=== PATIENT | male | born 1950 | race Caucasian/White ===

== ENCOUNTER 2023-05-02 15:17 | Outpatient (REF) | payer BC, MEDICARE, SELFPAY ==
[2023-05-02 18:19] LABS: Alanine Aminotransferase 20 U/L (0-40); Albumin Level 4.1 g/dL (3.5-5.0); Alkaline Phosphatase 74 U/L (39-117); Anion Gap 13 (12-20); Aspartate Amino Transferase 27 U/L (5-37); Blood Urea Nitrogen 16 mg/dL (9-16); Calcium 9.8 mg/dL (8.4-10.2); Carbon Dioxide 28 mmol/L (22-29); Chloride 107 mmol/L (96-108); Estimated Glomerular Filt Rate > 60; Ferritin 35 ng/mL (20-250); Glucose Random 81 mg/dL (60-115); Iron 56 mcg/dL (45-160); Magnesium 1.9 mg/dL (1.6-2.6); Percent Iron Saturation 19 % (15-50); Potassium 3.9 mmol/L (3.3-5.1); Sodium 144 mmol/L (135-145); Thyroid Stimulating Hormone 2.67 uIU/mL (0.32-4.0); Total Iron Binding Capacity 288 mcg/dL (228-428); Total Protein 6.5 g/dL (6.5-8.0); Unsaturated Iron Binding 232 ug/dL
[2023-05-02 18:34] LABS: Bilirubin Total 0.7 mg/dL (0.0-1.0)
== END 2023-05-02 15:18 | disposition home or self-care (01) ==
LOC: HO.MANLDS 15:17
PROVIDERS: Visit Provider Internal Medicine
DX: I47.20 Ventricular tachycardia, unspecified (principal)
CPT/HCPCS: 36415; 80053; 82728; 83540; 83735; 84443

== ENCOUNTER 2025-07-27 11:26 | Outpatient (REF) | payer MEDICARE, SELFPAY ==
[2025-07-27 13:03] LABS: MANUAL DIFF FLAG NO
[2025-07-27 13:19] LABS: Hematocrit 49.4 % (42.0-52.0); Hemoglobin 16.8 g/dl (14.0-18.0); Imm Gran Abs Auto 0.06 X10*3/uL (0.00-0.03); Imm Gran Pct Auto 0.6 % (0.0-0.4); Lymphocytes Absolute Auto 1.5 X10*3/uL (1.2-4.9); Mean Corpuscular HGB Conc 34.0 g/dl (31.0-36.0); Mean Corpuscular Hemoglobin 31.5 pg (27.0-33.0); Mean Corpuscular Volume 92.7 fL (80.0-98.0); NRBC Abs Auto 0.000 X10*3/uL (0.0-0.012); NRBC Pct Auto 0.0 /100WBC (0.0-0.2); Platelet Count 191 X10*3/uL (160-400); Red Blood Count 5.33 X10*6/uL (4.60-5.80); White Blood Count 10.7 X10*3/uL (4.8-10.8)
[2025-07-27 14:44] LABS: Prostate Specific Antigen 0.62 ng/mL (<0.05-4.0)
[2025-07-27 14:54] LABS: Alanine Aminotransferase 27 U/L (0-40); Albumin Level 4.4 g/dL (3.5-5.0); Anion Gap 15 (12-20); Aspartate Amino Transferase 28 U/L (5-37); Blood Urea Nitrogen 22 mg/dL (9-16); Calcium 9.3 mg/dL (8.4-10.2); Carbon Dioxide 29 mmol/L (22-29); Chloride 103 mmol/L (96-108); Estimated Glomerular Filt Rate 51; Potassium 3.3 mmol/L (3.3-5.1); Sodium 144 mmol/L (135-145); Total Protein 6.6 g/dL (6.5-8.0)
--- OUTSIDE RECORDS SUMMARY | 2025-07-27 15:06 | XMS_ITS | Encounter Summary ---
Author Organization [facility] Address [address] [place] [address] Phone Care Team Providers Care Bottle Label Inspector Name Role Phone Reji Stout DO Primary Care Provider Nigel Gunderson DO Unavailable [phone] Delmy Garcia FREIGHT REPRESENTATIVE Unavailable Encounter Details Date Type Department Care Team (Late st Contact Info) Description 10/03/2021 Procedure Pass Non-Invasive Cardiology [address] [place] [address] Social History Tobacco Use Types Packs/Day Years Used Date Smoking Tobacco: Never Smokeless Tobacco: Never Alcohol Use Standard Drinks/Week Comments Yes 0 (1 standard drink = 0.6 oz pur e alcohol) 3 drinks a day Sex and Gender Information Value Date Recorded Sex Assigned at Male 09/23/2018 11:07 AM EST Legal Sex Male 9:59 PM EDT Gender Identity Male 09/23/2018 11:07 AM EST Sexual Orientation Straight 09/23/2018 11 :07 AM EST documented as of this encounter Functional Status * Calculated C-SSRS Risk Score (Lifetime/Recent) Answer Date of Assessment Author No Risk Indicated 10/03/2021 12:35 PM Ivonne Enamorado RN * [place] Suicide Severity Rating Scale (Screener/Recent Self-Report) Question Answer Date of Assessment Author 1. Wish to be (Past 1 Month) No 022 12:35 PM Ivonne Enamorado RN 2. Non-Specific Active Suici sugar Thoughts (Past 1 Month) No 10/03/2021 12:35 PM Ivonne Enamorado RN 6. Suicidal Behavior (Lifetime) No 12:35 PM Ivonne Enamorado RN documented as of this encounter Plan of Treatment Upcoming Encounters Date Type Department Care Team (Late st Contact Info) Description 08/10/2025 9:45 AM EST Office Visit [facility] 22 [facility] 3rd Floor, [address] [place] [address] Ezra Robledo DO [address] [place] [address] [place] [address] [email or web address] documented as of this encounter Visit Diagnoses Not on filedocumented in this encounter Additional Health Concerns Infection Onset Date Last Indicated Resolved Time CoV-Exposed 11/16/2021 11/21/2021 11/27/2021 1:22 AM EDT CoV-Risk Comment:2 neg covid 06/25/2022 06/27/2022 06/27/2022 10:27 AM EDT Rhino/Entero 06/26/2022 06/26/2022 07/03/2022 1:22 AM EDT CoV-Risk 08/20/2022 08/20/2022 08/31/2022 1:22 AM EST CoV-Risk Comment:Neg covid 02/12/2023 02/12/2023 02/13/2023 6:46 AM E DT documented as of this encounter Care Teams Bottle Label Inspector Relationship Specialty Start Date End Date Reji Stout DO [email or web address] PCP - General Internal Medicine 01/03/19 Nigel Gunderson DO [address] [place] [address] [email or web address] Primary Oncologist Hematology and Oncology 05/05/21 Delmy Garcia NP [address] [place] [address] [email or web address] Nurse Practitioner Medical Oncology 05/05/21 documented as of this encounter Additional Source Comments The information contained in this document represents components of the legal health record. It is not the complete legal health record.[facility]
--- OUTSIDE RECORDS SUMMARY | 2025-07-27 15:06 | XMS_ITS | Encounter Summary ---
Author Organization [facility] Address [address] [place] [address] Phone Care Team Providers Care Home Health Cna Name Role Phone Reji Stout DO Primary Care Provider [phone] Reji Stout DO Primary Care Provider [phone] Nigel Gunderson DO Unavailable [phone] Delmy Garcia RECAPPER Unavailable [phone] Encounter Details Date Type Department Care Team (Late st Contact Info) Description 12/23/2018 Procedure Pass [facility], [facility] [address] [place] [address] Social History Tobacco Use Types Packs/Day Years [...] AM EST documented as of this encounter Plan of Treatment Upcoming Encounters Date Type Department Care Team (Late st Contact Info) Description 08/10/2025 9:45 AM EST Office Visit [facility] 22 [facility] 3rd Floor, [address] [place] [address] Ezra Robledo DO 22 [facility] [address] [place] [address] [email or web address] documented as of this encounter Visit Diagnoses Not on filedocumented in this encounter Additional Health Concerns Infection Onset Date Last Indicated Resolved Time CoV-Risk 07/23/2020 07/26/2020 08/06/2020 1:24 AM EST CoV-Exposed 11/16/2021 11/21/2021 11/27/2021 1:22 AM EDT CoV-Risk Comment:2 neg covid 06/25/2022 06/27/2022 06/27/2022 10:27 AM EDT Rhino/Entero 06/26/2022 06/26/2022 07/03/2022 1:22 AM EDT CoV-Risk 08/20/2022 08/20/2022 08/31/2022 1:22 AM EST CoV-Risk Comment:Neg covid 02/12/2023 02/12/2023 02/13/2023 6:46 AM E DT documented as of this encounter Care Teams Home Health Cna Relationship Specialty Start Date End Date Reji Stout DO PCP - General 06/21/17 01/02/19 Reji Stout DO PCP - General Internal Medicine 01/03/19 Nigel Gunderson DO 30 [place] [address] [email or web address] Primary Oncologist Hematology and Oncology 05/05/21 Delmy Garcia NP [address] [place] [address] [email or web address] Nurse Practitioner Medical Oncology 05/05/21 documented as of this encounter Additional Source Comments The information contained in this document represents components of the legal health record. It is not the complete legal health record.[facility]
--- OUTSIDE RECORDS SUMMARY | 2025-07-27 15:06 | XMS_ITS | Encounter Summary ---
Author Organization [facility] Address [address] [place] [address] Phone Care Team Providers Care Technical Sales Representative Name Role Phone Reji Stout DO Primary Care Provider [phone] Nigel Gunderson DO Unavailable [phone] Delmy Garcia BEVERAGE SPECIALIST Unavailable [phone] Encounter Details Date Type Department Care Team (Late st Contact Info) Description 10/05/2021 Procedure Pass [facility], Ct Scan - [address] [address] Social History Tobacco Use Types Packs/Day Years [...] Description 08/10/2025 9:45 AM EST Office Visit [facility] 22 [facility] 3rd Floor, [address] [place] [address] Ezra Robledo DO [address] [address] [email or web address] documented as of this encounter Visit Diagnoses [...] documented as of this encounter Care Teams Technical Sales Representative Relationship Specialty Start Date End Date Reji Stout DO [email or web address] PCP - General Internal Medicine 01/03/19 Nigel Gunderson DO [address] [place] [address] [email or web address] [email or web address] Primary Oncologist Hematology and Oncology 05/05/21 Delmy [facility] [place] [address] [email or web address] Nurse Practitioner Medical Oncology 05/05/21 documented as of this encounter Additional Source Comments The information contained in this document represents components of the legal health record. It is not the complete legal health record.[facility]
--- OUTSIDE RECORDS SUMMARY | 2025-07-27 15:06 | XMS_ITS | Encounter Summary ---
Author Organization [facility] Address [address] [facility] [address] [place] [address] Phone Care Team Providers Care Wedding Photographer Name Role Phone ElvincarolyneReji DO Primary Care Provider [phone] Nigel Gunderson DO Unavailable [phone] Delmy Garcia MOLDED GOODS SPOT PICKER Unavailable [phone] Encounter Details Date Type Department Care Team (Latest Contact Info) Description 10/05/2021 Transcribe Orders Virtual Department [address] [place] [address] Alysa Castro PA [address] [place] [address] [place] [address] Cardiomegaly (Primary Dx) Social History Tobacco Use Types Packs/Day Years [...] Description 08/10/2025 9:45 AM EST Office Visit [facility] 22 [facility] 3rd Floor, [address] [place] [address] Ezra Robledo DO [address] [address] [email or web address] documented as of this encounter Visit Diagnoses Diagnosis Cardiomegaly- Primary documented in this encounter Additional Health Concerns Infection Onset Date Last Indicated Resolved Time CoV-Exposed 11/16/2021 11/21/2021 11/27/2021 1:22 AM EDT CoV-Risk Comment:2 neg covid 06/25/2022 06/27/2022 06/27/2022 10:27 AM EDT Rhino/Entero 06/26/2022 06/26/2022 07/03/2022 1:22 AM EDT CoV-Risk 08/20/2022 08/20/2022 08/31/2022 1:22 AM EST CoV-Risk Comment:Neg covid 02/12/2023 02/12/2023 02/13/2023 6:46 AM E DT documented as of this encounter Care Teams Wedding Photographer Relationship Specialty Start Date End Date Reji Stout DO PCP - General Internal Medicine 01/03/19 Nigel Gunderson DO 30 [place] [address] [email or web address] [email or web address] Primary Oncologist Hematology and Oncology 05/05/21 Delmy Garcia, M[employer]ED GOODS SPOT PICKER [address] [place] [address] Nurse Practitioner Medical Oncology 05/05/21 documented as of this encounter Additional Source Comments The information contained in this document represents components of the legal health record. It is not the complete legal health record.[facility]
--- OUTSIDE RECORDS SUMMARY | 2025-07-27 15:06 | XMS_ITS | Encounter Summary ---
Author Organization [facility] Address [address] [place] [address] Phone Care Team Providers Care Threat Analyst Name Role Phone Reji Stout DO Primary Care Provider [phone] Nigel Gunderson DO Unavailable Delmy Garcia GLOBAL POSITION SYSTEM TECHNICIAN Unavailable [phone] Reason for Referral * MRI/CAT Scan - Closed Specialty Diagnoses / Procedures Referred By Contac t Referred To Contact Radiology Diagnoses Dizziness and giddiness Procedures CT Head CHG CT SCAN,HEAD/BRAIN,W/O CONTRAST MATL CHG CT SCAN HEAD CONTRAST CHG CT SCAN HEAD COMBO Alysa Castro PA Phone: tel: fax: Referral ID Status Reason Start Date Expiration Date Visits Re quested Visits Authorized [id number] Closed 10/10/2021 12/08/2021 1 1 Encounter Details Date Type Department Care Team (Latest Contact Info) Description 10/05/2021 Transcribe Orders Virtual Department [address] [place] [address] Alysa Castro PA 6 [facility] [place] [address] [place] [address] Dizziness and giddiness (Primary Dx) Social History Tobacco Use Types [...] Description 08/10/2025 9:45 AM EST Office Visit [facility] 22 [facility] 3rd Floor, [address] [place] [address] Ezra Robledo DO 22 [facility] [address] [place] [address] [email or web address] documented as of this encounter Results * CT HEAD WITHOUT CONTRAST (10/12/2021 8:00 AM EST) Anatomical Region Laterality Modality Head Computed Tomogra phy 10/12/2021 8:06 AM EST Impressions 10/12/2021 8:33 AM EST No acute intracranial findings. No findings to account for the patient's symptoms. Narrative 10/12/2021 8:33 AM EST COMPARISON: MRI brain 01/03/2019. TECHNIQUE: Nonenhanced head CT from skull base to vertex with multi-planar reformats. Manual dose reduction technique tailored for patient and site of imaging. CT HEAD FINDINGS: Brain: There is no acute intracranial hemorrhage, infarct, or intracranial mass. No mass effect, midline shift or extra-axial fluid collections. Balbuena-white matter differentiation is preserved. Basal cisterns are patent. Pituitary gland is not enlarged. Ventricles: No hydrocephalus. Stable mild enlargement due to atrophy. Vasculature: Moderate bilateral cavernous carotid artery and distal vertebral artery atherosclerosis. Orbits: Stable mild bilateral proptosis. No acute findings. Mastoids/Middle Ear/Ext Canals/Paranasal Sinuses: New trace left mastoid fluid. Chronic posterior right ethmoid sinus fluid, incompletely imaged right maxillary sinus retention cysts and severe right nasal septal deviation and spurring. No air-fluid levels. Scalp/Soft Tissues: No acute soft tissue findings. Bones: No acute bony abnormality. Incidental partial bony fusion of C1 and the occiput. Procedure Note Andre Carey MD - 10/12/2021 COMPARISON: MRI brain 01/03/2019. TECHNIQUE: Nonenhanced head CT from skull base to vertex with multi- planarreformats. Manual dose reduction technique tailored for patient and siteof imaging. CT HEAD FINDINGS: Brain: There is no acute intracranial hemorrhage, infarct, orintracranial mass. No mass effect, midline shift or extra-axial fluidcollections. Balbuena-white matter differentiation is preserved. Basalcisterns are patent. Pituitary gland is not enlarged. Ventricles: No hydrocephalus. Stable mild enlargement due to atrophy. Vasculature: Moderate bilateral cavernous carotid artery and distalvertebral artery atherosclerosis. Orbits: Stable mild bilateral proptosis. No acute findings. Mastoids/Middle Ear/Ext Canals/Paranasal Sinuses: New trace left mastoidfluid. Chronic posterior right ethmoid sinus fluid, incompletely imagedright maxillary sinus retention cysts and severe right nasal septaldeviation and spurring. No air- fluid levels. Scalp/Soft Tissues: No acute soft tissue findings. Bones: No acute bony abnormality. Incidental partial bony fusion of C1and the occiput. IMPRESSION: No acute intracranial findings. No findings to account for the patient'ssymptoms. Alysa HANDY IMG CT HEAD/NECK Final Resu lt documented in this encounter Visit Diagnoses Diagnosis Dizziness and giddiness- Primary Dizziness and giddiness documented in this encounter Additional Health Concerns Infection Onset Date Last Indicated Resolved Time CoV-Exposed 11/16/2021 11/21/2021 11/27/2021 1:22 AM EDT CoV-Risk Comment:2 neg covid 06/25/2022 06/27/2022 06/27/2022 10:27 AM EDT Rhino/Entero 06/26/2022 06/26/2022 07/03/2022 1:22 AM EDT CoV-Risk 08/20/2022 08/20/2022 08/31/2022 1:22 AM EST CoV-Risk Comment:Neg covid 02/12/2023 02/12/2023 02/13/2023 6:46 AM E DT documented as of this encounter Care Teams Threat Analyst Relationship Specialty Start Date End Date Reji Stout DO [email or web address] PCP - General Internal Medicine 01/03/19 Nigel Gunderson DO [address] [place] [address] [email or web address] Primary Oncologist Hematology and Oncology 05/05/21 Delmy Garcia NP [address] [place] [address] [email or web address] Nurse Practitioner Medical Oncology 05/05/21 documented as of this encounter Additional Source Comments The information contained in this document represents components of the legal health record. It is not the complete legal health record.[facility]
--- OUTSIDE RECORDS SUMMARY | 2025-07-27 15:06 | XMS_ITS | Encounter Summary ---
Author Organization [facility] Address [address] [place] [address] Phone Care Team Providers Care Support Team Assoc Name Role Phone Reji Stout DO Primary Care Provider [phone] Reji Stout DO Primary Care Provider [phone] Nigel Gunderson DO Unavailable [phone] Delmy Garcia ENVIRONMENTAL DESIGNER Unavailable [phone] Encounter Details Date Type Department Care Team (Latest Contact Info) Description 12/31/2018 Transcribe Orders [facility] Main [address] [place] [address] Emmanuel Conklin MD [address] [place] [address], [address] [place] [address] [email or web address] Memory loss (Primary Dx) Social History Tobacco Use Types [...] Description 08/10/2025 9:45 AM EST Office Visit [facility] 22 [facility] 3rd Floor, [address] [place] [address] Ezra Robledo DO 22 [facility] [address] [place] [address] [email or web address] documented as of this encounter Results * (ABNORMAL) Vitamin B12 (12/31/2018 2:43 PM EDT) VITAMIN B12 201(L) 232 - 1,245 pg/mL [facility] Blood 12/31/2018 2:43 PM EDT 12/31/2018 2:47 PM EDT us Emmanuel Conklin MD LAB BLOOD BKR ORDERABLES Fin al Result [facility] [address] [place] [address] * (ABNORMAL) Methylmalonic acid, serum (12/31/2018 2:43 PM EDT) METHYLMALONIC ACID 0.44(H) <=0.40 nmol/mL [facility] DPT OF LAB MED AND PAT+ Comment: (NOTE) In this sample, the concentration of methylmalonic acid (MMA) was minimally elevated. As the upper limit of the reference range varies in different laboratories from 0.4 to 0.6 nmol/mL. This finding could be considered normal, especially if the patient does not show other signs of vitamin B12 deficiency. ADDITIONAL INFORMATION This test was developed and its performance characteristics determined by [facility] in a manner consistent with CLIA requirements. This test has not been cleared or approved by the U.S. Food and Drug Administration. Blood 12/31/2018 2:43 PM EDT 12/31/2018 2:47 PM EDT us Emmanuel Conklin MD LAB BLOOD ORDERABLES Final R esult [facility] DPT OF LAB MED AND PAT+ [address] [place] [address] documented in this encounter Visit Diagnoses Diagnosis Memory loss- Primary documented in this encounter Additional Health [...] documented as of this encounter Care Teams Support Team Assoc Relationship Specialty Start Date End Date Reji Stout DO PCP - General 06/21/17 01/02/19 Reji Stout DO [email or web address] PCP - General Internal Medicine 01/03/19 Nigel Gunderson DO [address] [place] [address] [email or web address] Primary Oncologist Hematology and Oncology 05/05/21 Delmy Garcia [facility] [place] [address] [email or web address] Nurse Practitioner Medical Oncology 05/05/21 documented as of this encounter Additional Source Comments The information contained in this document represents components of the legal health record. It is not the complete legal health record.[facility]
--- OUTSIDE RECORDS SUMMARY | 2025-07-27 15:06 | XMS_ITS | Encounter Summary ---
Author Organization [facility] Address [address] [facility] [address] [place] [address] Phone Care Team Providers Care Scrum Coach Name Role Phone Reji Stout DO Primary Care Provider [phone] Reji Stout DO Primary Care Provider [phone] Nigel Gunderson DO Unavailable [phone] Delmy Garcia TOWER ATTENDANT Unavailable [phone] Reason for Referral * MRI/CAT Scan - Closed Specialty Diagnoses / Procedures Referred By Lurdes mccain Referred To Contact Radiology Diagnoses Memory loss Procedures MRI Brain Emmanuel Conklin MD Phone: tel: fax: [email or web address] Referral ID Status Reason Start Date Expiration Date Visits Re quested Visits Authorized [id number] Closed 12/23/2018 02/20/2019 1 1 Encounter Details Date Type Department Care Team (Latest Contact Info) Description 12/23/2018 Transcribe Orders Virtual Department [address] [place] [address] Emmanuel Conklin MD [address] [place] [address], [address] [place] [address] [email or web address] Memory loss (Primary Dx) Social History [...] Description 08/10/2025 9:45 AM EST Office Visit [facility] [address] [place] [address] 3rd Floor, [address] [place] [address] Ezra Robledo DO [address] [place] [address] [place] [address] [email or web address] documented as of this encounter Results * MRI BRAIN WITH AND WITHOUT CONTRAST (01/03/2019 6:21 PM EDT) Anatomical Region Laterality Modality Head Magnetic Resonan ce 01/03/2019 6:23 PM EDT Impressions 01/03/2019 6:33 PM EDT No evidence of parenchymal ischemia, mass, or other significant intracranial pathology. Paranasal sinus inflammatory changes. POS - [id number] Narrative 01/03/2019 6:33 PM EDT TECHNIQUE: Exam performed on a 1.5 Denise high-field MRI scanner. Axial T1, T2, T2 FLAIR, T2 GRE, and diffusion-weighted with ADC map, sagittal T1, followed by post-gadolinium axial and 3-D T1 with sagittal and coronal re- formation sequences were obtained. FINDINGS: There is no evidence of acute intracranial hemorrhage, ischemia, or mass. Brain parenchyma displays essentially normal bowen-white signal intensity and distribution when allowing for a small focus of GRE susceptibility in the medial left frontal lobe, possibly reflecting a calcification or the sequela of old hemorrhage. No abnormal parenchymal contrast enhancement. No gross pituitary enlargement. Minimal anterior falcine plaquing. Ventricles and cerebral sulci are felt to be within normal limits in size for patient age. No pathologic extra-axial fluid collections are seen. Normal flow-voids appear to be present in the major intracranial arteries at the base. No discrete orbital lesion apparent. There is mucous cyst formation in the caudal aspect of the right maxillary antrum with inflammatory changes present in the right dorsal ethmoid air cell. No abnormal fluid collections are seen in the mastoid air cells or the remaining paranasal sinuses. Procedure Note Judy Bhandari MD - 01/03/2019 TECHNIQUE: Exam performed on a 1.5 Denise high-field MRI scanner. AxialT1, T2, T2 FLAIR, T2 GRE, and diffusion-weighted with ADC map, sagittalT1, followed by post-gadolinium axial and 3-D T1 with sagittal and coronalre-formation sequences were obtained. FINDINGS: There is no evidence of acute intracranial hemorrhage, ischemia, or mass.Brain parenchyma displays essentially normal bowen-white signal intensityand distribution when allowing for a small focus of GRE susceptibility inthe medial left frontal lobe, possibly reflecting a calcification or thesequela of old hemorrhage. No abnormal parenchymal contrast enhancement.No gross pituitary enlargement. Minimal anterior falcine plaquing.Ventricles and cerebral sulci are felt to be within normal limits in sizefor patient age. No pathologic extra-axial fluid collections are seen.Normal flow-voids appear to be present in the major intracranial arteriesat the base. No discrete orbital lesion apparent. There is mucous cyst formation in the caudal aspect of the right maxillaryantrum with inflammatory changes present in the right dorsal ethmoid aircell. No abnormal fluid collections are seen in the mastoid air cells orthe remaining paranasal sinuses. IMPRESSION: No evidence of parenchymal ischemia, mass, or other significantintracranial pathology. Paranasal sinus inflammatory changes. POS - [id number] us Emmanuel Conklin MD IMG MR HEAD/NECK Final Resul t documented in this encounter Visit Diagnoses Diagnosis Memory loss- Primary Memory loss documented in this encounter Additional Health Concerns [...] documented as of this encounter Care Teams Scrum Coach Relationship Specialty Start Date End Date Reji Stout DO [email or web address] PCP - General 06/21/17 01/02/19 Reji Stout DO [email or web address] PCP - General Internal Medicine 01/03/19 Nigel Gunderson DO [address] [place] [address] [email or web address] Primary Oncologist Hematology and Oncology 05/05/21 Delmy Garcia NP [address] [place] [address] [email or web address] Nurse Practitioner Medical Oncology 05/05/21 documented as of this encounter Additional Source Comments The information contained in this document represents components of the legal health record. It is not the complete legal health record.[facility]
--- OUTSIDE RECORDS SUMMARY | 2025-07-27 15:07 | XMS_ITS | Encounter Summary ---
Author Organization [facility] Address [address] [place] [address] Phone Care Team Providers Care Police Or Patrol Park Officer Name Role Phone Elvincarolyne Reji Sevilla DO Primary Care Provider [phone] Nigel Gunderson DO Unavailable [phone] Delmy Garcia MACHINE FILLER SERVICER Unavailable [phone] Encounter Details Date Type Department Care Team (Latest Contact Info) Description 07/15/2019 Transcribe Orders Virtual Department 30 [place] [address] Arya Goldstein MD [address] [facility], [address] [place] [address] [email or web address] Cyst of kidney, acquired (Primary Dx) Social History Tobacco Use Types [...] Description 08/10/2025 9:45 AM EST Office Visit [facility] [address] [facility] 3rd Floor, [address] [place] [address] Ezra Robledo, [address] [facility] [address] [place] [address] [email or web address] documented as of this encounter Results * US Kidneys (08/18/2019 7:52 AM EST) Anatomical Region Laterality Modality Abdomen, Kidney Ultrasound 08/18/2019 9:23 AM EST Impressions 08/18/2019 9:43 AM EST No significant change in right renal cysts. Additional incidental lesions of the liver and spleen, also stable. POS - [id number] Narrative 08/18/2019 9:43 AM EST CLINICAL HISTORY: CYST OF KIDNEY ACQUIRED TECHNIQUE: Sonographic evaluation of both kidneys performed. COMPARISON: 09/10/2018 FINDINGS: Right kidney: 5.1 x 10.2 cm There is no suspicious solid mass. There is a 1.5 x 1.4 x 1.9 cm exophytic right renal cyst. It previously measured 1.5 x 1.5 x 2.0 cm. There is no obstructing stone or hydronephrosis. Left kidney: 5.0 x 10.1 cm There is no suspicious solid mass. There is no obstructing stone or hydronephrosis. There is a 2.4 x 3.5 x 2.8 cm echogenic lesion in the right lobe of the liver, previously described. This likely represents a hemangioma. There is a 0.8 x 0.8 x 0.7 cm hypoechoic area in the spleen, likely a cyst or other benign entity. Procedure Note Kuldeep Shultz MD - 08/18/2019 CLINICAL HISTORY: CYST OF KIDNEY ACQUIRED TECHNIQUE: Sonographic evaluation of both kidneys performed. COMPARISON: 09/10/2018 FINDINGS: Right kidney: 5.1 x 10.2 cm There is no suspicious solid mass. There is a 1.5 x 1.4 x 1.9 cm exophyticright renal cyst. It previously measured 1.5 x 1.5 x 2.0 cm. There is no obstructing stone or hydronephrosis. Left kidney: 5.0 x 10.1 cm There is no suspicious solid mass. There is no obstructing stone or hydronephrosis. There is a 2.4 x 3.5 x 2.8 cm echogenic lesion in the right lobe of theliver, previously described. This likely represents a hemangioma. There lev 0.8 x 0.8 x 0.7 cm hypoechoic area in the spleen, likely a cyst or otherbenign entity. IMPRESSION: No significant change in right renal cysts. Additional incidental lesionsof the liver and spleen, also stable. POS - [id number] us Arya Goldstein MD [facility] Final Result documented in this encounter Visit Diagnoses Diagnosis Cyst of kidney, acquired- Primary Acquired cyst of kidney Cyst of kidney, acquired Acquired cyst of kidney documented in this encounter Additional Health Concerns [...] documented as of this encounter Care Teams Police Or Patrol Park Officer Relationship Specialty Start Date End Date Reji Stout DO [email or web address] PCP - General Internal Medicine 01/03/19 Nigel Gunderson DO [address] [place] [address] [email or web address] Primary Oncologist Hematology and Oncology 05/05/21 Delmy Garcia NP [address] [address] [email or web address] Nurse Practitioner Medical Oncology 05/05/21 documented as of this encounter Additional Source Comments The information contained in this document represents components of the legal health record. It is not the complete legal health record.[facility]
--- OUTSIDE RECORDS SUMMARY | 2025-07-27 15:07 | XMS_ITS | Encounter Summary ---
Author Organization [facility] Address [address] [place] [address] Phone Care Team Providers Care Coating Machine Operator Name Role Phone Elvincarolyne Reji Sevilla DO Primary Care Provider [phone] Nigel Gunderson DO Unavailable [phone] Delmy Garcia CUSTOMER SUPPORT ENGINEER Unavailable [phone] Encounter Details Date Type Department Care Team (Latest Contact Info) Description 09/21/2020 Transcribe Orders Virtual Department 30 [place] [address] Arya Goldstein MD [facility] [facility], [address] [place] [address] Cyst of kidney, acquired (Primary Dx) Social [...] Description 08/10/2025 9:45 AM EST Office Visit [facility] [address] [facility] 3rd Floor, [address] [place] [address] Ezra Robledo, [address] [facility] [address] [place] [address] [email or web address] documented as of this encounter Results * US Kidneys (10/27/2020 7:57 AM EST) Anatomical Region Laterality Modality Abdomen, Kidney Ultrasound 10/27/2020 8:00 AM EST Impressions 10/27/2020 8:13 AM EST Decrease in size of the 1.1 cm Bosniak 2 right midpole renal cyst. Narrative 10/27/2020 8:13 AM EST COMPARISON: Renal ultrasound 08/18/2019. CT abdomen pelvis 09/23/2018. RENAL ULTRASOUND FINDINGS: Right Kidney: measures 11 x 5 cm. No hydronephrosis, masses or calculi. Decrease in size of the complex right lateral midpole cortical cyst measuring 1.0 x 0.9 x 1.1 cm with a thick avascular wall (previously 1.5 x 1.4 x 1.9 cm). Cortical echogenicity and thickness are normal. No perinephric fluid collections. Left Kidney: measures 10 x 5 cm. No hydronephrosis, masses or calculi. Cortical echogenicity and thickness are normal. No perinephric fluid collections. Procedure Note Andre Carey MD - 10/27/2020 COMPARISON: Renal ultrasound 08/18/2019. CT abdomen pelvis 09/23/2018. RENAL ULTRASOUND FINDINGS: Right Kidney: measures 11 x 5 cm. No hydronephrosis, masses or calculi.Decrease in size of the complex right lateral midpole cortical cystmeasuring 1.0 x 0.9 x 1.1 cm with a thick avascular wall (previously 1.5 x1.4 x 1.9 cm). Cortical echogenicity and thickness are normal. Noperinephric fluid collections. Left Kidney: measures 10 x 5 cm. No hydronephrosis, masses or calculi.Cortical echogenicity and thickness are normal. No perinephric fluidcollections. IMPRESSION: Decrease in size of the 1.1 cm Bosniak 2 right midpole renal cyst. us Arya Goldstein MD [facility] RENAL Final Result documented in this encounter [...] documented as of this encounter Care Teams Coating Machine Operator Relationship Specialty Start Date End Date Reji Stout DO [email or web address] PCP - General Internal Medicine 01/03/19 Nigel Gunderson DO [address] [place] [address] [email or web address] Primary Oncologist Hematology and Oncology 05/05/21 Delmy Garcia NP [address] [place] [address] [email or web address] Nurse Practitioner Medical Oncology 05/05/21 documented as of this encounter Additional Source Comments The information contained in this document represents components of the legal health record. It is not the complete legal health record.[facility]
--- OUTSIDE RECORDS SUMMARY | 2025-07-27 15:07 | XMS_ITS | Encounter Summary ---
Author Organization [facility] Address [address] [place] [address] Phone Care Team Providers Care Parking Line Painter Name Role Phone Reji Stout DO Primary Care Provider [phone] Reji Stout DO Primary Care Provider [phone] Nigel Gunderson DO Unavailable [phone] Delmy Garcia SOFTWARE IMPLEMENTATION PROJECT MANAGER Unavailable [phone] Encounter Details Date Type Department Care Team (Latest Contact Info) Description 12/24/2018 Transcribe Orders [facility] Main [address] [place] [address] Emmanuel Conklin MD [address] [place] [address], [address] [place] [address] [email or web address] Memory loss (Primary Dx) Social History [...] Description 08/10/2025 9:45 AM EST Office Visit [facility] [address] [facility] 3rd Floor, [address] [place] [address] Ezra Robledo DO [address] [facility] [address] [place] [address] [email or web address] documented as of this encounter Results * Lyme screen with reflex to [place] blot, blood (12/24/2018 2:43 PM EDT) Pathologist [facility] Lyme AB IgG Negative Negative [facility] Lyme AB IgM Negative Negative [facility] Blood 12/24/2018 2:43 PM EDT 12/24/2018 5:00 PM EDT us Emmanuel Conklin MD LAB BLOOD BKR ORDERABLES Fin al Result Performing Organization Address City/[facility]/ZIP Co de Phone Number [address] [address] * (ABNORMAL) Vitamin B12 (12/24/2018 2:43 PM EDT) Pathologist [facility] VITAMIN B12 207(L) 232 - 1,245 pg/mL [facility] Blood 12/24/2018 2:43 PM EDT 12/24/2018 5:00 PM EDT us Emmanuel Conklin MD LAB BLOOD BKR ORDERABLES Fin al Result Performing Organization Address [facility]/ZIP Co de Phone Number [address] [address] * Syphilis antibody screen (12/24/2018 2:43 PM EDT) Pathologist [facility] RPR NON-REACTIV E NON-REACTI VE [facility] Blood 12/24/2018 2:43 PM EDT 12/24/2018 5:00 PM EDT us Emmanuel Conklin MD LAB BLOOD BKR ORDERABLES Fin al Result Performing Organization Address [facility] de Phone Number [address] [address] * Folate (12/24/2018 2:43 PM EDT) FOLIC ACID 13.8 4.2 - 19.9 ng/mL [facility] Blood 12/24/2018 2:43 PM EDT 12/24/2018 5:00 PM EDT us Emmanuel Conklin MD LAB BLOOD BKR ORDERABLES Fin al Result Performing Organization Address [facility] Phone Number [address] [address] * TSH (12/24/2018 2:43 PM EDT) TSH 1.97 0.27 - 4.20 uIU/mL [facility] Blood 12/24/2018 2:43 PM EDT 12/24/2018 5:00 PM EDT Emmanuel Conklin MD LAB BLOOD BKR ORDERABLES Fin al Result Performing Organization Address [facility] de Phone Number [address] [address] documented in this encounter Visit Diagnoses Diagnosis [...] documented as of this encounter Care Teams Parking Line Painter Relationship Specialty Start Date End Date Reji Stout DO PCP - General 06/21/17 01/02/19 Reji Stout DO PCP - General Internal Medicine 01/03/19 Nigel Gunderson DO [address] [place] [address] [email or web address] Primary Oncologist Hematology and Oncology 05/05/21 Delmy Garcia NP [address] [place] [address] [email or web address] Nurse Practitioner Medical Oncology 05/05/21 documented as of this encounter Additional Source Comments The information contained in this document represents components of the legal health record. It is not the complete legal health record.[facility]
--- OUTSIDE RECORDS SUMMARY | 2025-07-27 15:07 | XMS_ITS | Encounter Summary ---
Author Organization [facility] Address [address] [place] [address] Phone Care Team Providers Care Diversional Therapist Name Role Phone Reji Stout DO Primary Care Provider [phone] Reji Stout DO Primary Care Provider [phone] Nigel Gunderson DO Unavailable [phone] Delmy Garcia CLINIQUE COUNTER MANAGER Unavailable [phone] Encounter Details Date Type Department Care Team (Latest Contact Info) Description 07/30/2017 Transcribe Orders [facility] [address] [place] [address] Nigel Gunderson DO [address] [place] [address] [email or web address] Malignant neoplasm of colon, unspecified part of colon (Primary Dx) Social History Tobacco Use Types Packs/Day Years Used Date Smoking Tobacco: Never Assessed Sex and Gender Information Value Date Recorded Sex Assigned at Male 09/23/2018 11:07 AM EST Legal Sex Male 9:59 PM EDT Gender Identity Male 09/23/2018 11:07 AM EST Sexual Orientation Straight 09/23/2018 11 :07 AM EST documented as of this encounter Plan of Treatment Upcoming Encounters Date Type Department Care Team (Late st Contact Info) Description 08/10/2025 9:45 AM EST Office Visit [facility] 22 [facility] 3rd Floor, [address] [place] [address] Ezra Robledo DO 22 [facility] [address] [place] [address] [email or web address] documented as of this encounter Results * Comprehensive metabolic panel (07/30/2017 2:55 PM EST) SODIUM 144 133 - 146 mmol/L [facility] POTASSIUM 3.3 3.3 - 5.1 mmol/L [facility] CHLORIDE 104 96 - 108 mmol/L [facility] CO2 29 21 - 35 mmol/L [facility] BUN 12 6 - 19 mg/dL [facility] CREATININE 0.90 0.5 - 1.5 mg/dL [facility] GLUCOSE 93 70 - 99 mg/dL [facility] ALBUMIN 4.3 3.9 - 4.8 g/dL [facility] TOTAL PROTEIN 6.9 6.5 - 8.0 g/dL [facility] CALCIUM 9.1 8.4 - 10.3 mg/dL [facility] ALKALINE PHOSPHATASE 65 39 - 117 U/L [facility] TOTAL BILIRUBIN 0.8 0 - 1.2 mg/dL [facility] AST 19 0 - 37 U/L [facility] ALT 22 0 - 40 U/L [facility] GLOBULIN 2.6 1 - 4.8 g/dL [facility] EGFR >60 60 - 1000 mL/min/1.7 3m2 [facility] Comment:Abnormal if <60. If patient is -Irish, multiply the result by 1.21. ANION GAP 14 10 - 20 mmol/L [facility] Blood 07/30/2017 2:55 PM EST 07/30/2017 2:57 PM EST us Manning W Neptali DO LAB BLOOD BKR ORDERABLES Fi nal Result [facility] [address] [place] [address] * (ABNORMAL) CBC and differential (07/30/2017 2:55 PM EST) WBC 9.26 3.40 - 11.20 K/uL [facility] RBC 4.70 4.50 - 5.50 M/uL [facility] HGB 15.3 13.0 - 17.0 g/dL [facility] HCT 42.2 40.0 - 51.0 % [facility] PLT 215 130 - 400 K/uL [facility] MCV 89.8 79.0 - 98.0 fL [facility] MCH 32.6 27.0 - 34.8 pg [facility] MCHC 36.3(H) 31.5 - 36.0 g/dL [facility] RDW 11.7 10.8 - 14.6 % [facility] MPV 9.9 9.4 - 12.4 fl [facility] NRBC 0.00 /100 WBCs [facility] ABSOLUTE NRBC 0.00 K/uL [facility] DIFF METHOD Auto [facility] NEUTS 74.5 45.30 - 77.70 % [facility] LYMPHS 13.5 12.30 - 39.70 % [facility] MONOS 8.5 4.10 - 12.80 % [facility] EOS 2.3 0 - 7.2 % [facility] BASOS 0.8 0 - 2.80 % [facility] Granulocytes, immature (%) 0.4 0.0 - 0.9 % [facility] ABSOLUTE NEUTS 6.90 1.40 - 7.70 K/uL [facility] ABSOLUTE LYMPHS 1.25 0.60 - 3.20 K/uL [facility] ABSOLUTE MONOS 0.79(H) 0.11 - 0.59 K/uL [facility] ABSOLUTE EOS 0.21 0.01 - 0.50 K/uL [facility] ABSOLUTE BASOS 0.07 0.00 - 0.08 K/uL [facility] Granulocytes, immature 0.04 0.00 - 0.05 K/uL [facility] Blood 07/30/2017 2:55 PM EST 07/30/2017 2:57 PM EST us Manning W Neptali DO LAB BLOOD BKR ORDERABLES Fi nal Result Performing Organization Address [facility] Co de Phone Number [address] [address] * Carcinoembryonic antigen (CEA) (07/30/2017 2:55 PM EST) CEA 1.9 ng/mL [facility] Comment: Nonsmokers: less than or equal to 3.0 ng/mL Smokers: less than 5.0 ng/mL Blood 07/30/2017 2:55 PM EST 07/30/2017 2:57 PM EST us Manning W Neptali DO LAB BLOOD BKR ORDERABLES Fi nal Result Performing Organization Address [facility] Co de Phone Number [address] [address] documented in this encounter Visit Diagnoses Diagnosis Malignant neoplasm of colon, unspecified part of colon- Primary documented in this encounter Additional Health [...] documented as of this encounter Care Teams Diversional Therapist Relationship Specialty Start Date End Date Reji Stout DO [email or web address] PCP - General 06/21/17 01/02/19 Reji Stout DO [email or web address] PCP - General Internal Medicine 01/03/19 Nigel Gunderson DO [address] [place] [address] [email or web address] Primary Oncologist Hematology and Oncology 05/05/21 Delmy Garcia NP [address] [place] [address] [email or web address] Nurse Practitioner Medical Oncology 05/05/21 documented as of this encounter Additional Source Comments The information contained in this document represents components of the legal health record. It is not the complete legal health record.[facility]
--- OUTSIDE RECORDS SUMMARY | 2025-07-27 15:07 | XMS_ITS | Encounter Summary ---
Author Organization [facility] Address [address] [place] [address] Phone Care Team Providers Care German Professor Name Role Phone Reji Stout DO Primary Care Provider [phone] Reji Stout DO Primary Care Provider [phone] Nigel Gunderson DO Unavailable Delmy Garcia MULTIPLE SLIDE OPERATOR Unavailable [phone] Encounter Details Date Type Department Care Team (Late st Contact Info) Description 06/23/2017 Ancillary Orders Virtual Department [address] [place] [address] Arya Goldstein MD [facility], [address] [place] [address] Bladder stones; Microscopic hematuria; Bladder neck obstruction; Incomplete bladder emptying Social History Tobacco Use Types Packs/Day Years [...] Description 08/10/2025 9:45 AM EST Office Visit [facility] [address] [facility] 3rd Floor, [address] [place] [address] Ezra Robledo, [address] [facility] [address] [place] [address] [email or web address] documented as of this encounter Results * US Kidneys and Bladder (08/17/2017 8:11 AM EST) Anatomical Region Laterality Modality Abdomen, Kidney Ultrasound 08/17/2017 9:03 AM EST Impressions 08/17/2017 4:12 PM EST No significant interval change in the complex right renal cyst. Capacious bladder with large post void residual bladder volume of 52%, compared with 28% previously. POS - [id number] Edited by: Sherin Daniel on 08/17/2017 9:17 AM Narrative 08/17/2017 4:12 PM EST COMPARISON: 11/14/2016 FINDINGS: Kidneys are within normal limits for size measuring 11.0 x 4.9 cm on the right and 10.1 x 6.0 cm on the left. Cortical thickness and echogenicity are within normal limits. No hydronephrosis or shadowing stones. No significant interval change in size of the exophytic thinly septated right cyst with dependent debris when remeasured on the prior exam. It is currently measured at 2.0 x 1.7 x 1.4 cm. No left renal lesions. Prevoid bladder volume measures 672 cc and post void measures 346 cc for a 52% post void residual bladder volume. No evidence of an intraluminal mass or stone. No focal bladder wall thickening. Both ureteral jets are visualized. Procedure Note Sergo Juarez MD - 08/17/2017 COMPARISON: 11/14/2016 FINDINGS: Kidneys are within normal limits for size measuring 11.0 x 4.9 cm on theright and 10.1 x 6.0 cm on the left. Cortical thickness and echogenicityare within normal limits. No hydronephrosis or shadowing stones. Nosignificant interval change in size of the exophytic thinly septated rightcyst with dependent debris when remeasured on the prior exam. It iscurrently measured at 2.0 x 1.7 x 1.4 cm. No left renal lesions. Prevoid bladder volume measures 672 cc and post void measures 346 cc for a52% post void residual bladder volume. No evidence of an intraluminalmass or stone. No focal bladder wall thickening. Both ureteral jets arevisualized. IMPRESSION: No significant interval change in the complex right renal cyst. Capacious bladder with large post void residual bladder volume of 52%,compared with 28% previously. POS - [id number] Edited by: Sherin Daniel on 08/17/2017 9:17 AM Arya Goldstein MD [facility] RENAL Final Result documented in this encounter Visit Diagnoses Diagnosis Bladder stones Other calculus in bladder Microscopic hematuria Bladder neck obstruction Incomplete bladder emptying Bladder stones Other calculus in bladder Microscopic hematuria Bladder neck obstruction Incomplete bladder emptying documented in this encounter Additional Health Concerns [...] documented as of this encounter Care Teams German Professor Relationship Specialty Start Date End Date Reji Stout DO [email or web address] PCP - General 06/21/17 01/02/19 Reji Stout DO [email or web address] PCP - General Internal Medicine 01/03/19 Nigel Gunderson DO [address] [place] [address] [email or web address] Primary Oncologist Hematology and Oncology 05/05/21 Delmy Garcia NP [address] [place] [address] [email or web address] Nurse Practitioner Medical Oncology 05/05/21 documented as of this encounter Additional Source Comments The information contained in this document represents components of the legal health record. It is not the complete legal health record.[facility]
--- OUTSIDE RECORDS SUMMARY | 2025-07-27 15:07 | XMS_ITS | Encounter Summary ---
Author Organization [facility] Address [address] [place] [address] Phone Care Team Providers Care Proj Engineer Name Role Phone Reji Stout DO Primary Care Provider [phone] Reji Stout DO Primary Care Provider [phone] Nigel Gunderson DO Unavailable Delmy Garcia ASSISTANT PROFESSOR OF SURGERY Unavailable [phone] Encounter Details Date Type Department Care Team (Late st Contact Info) Description 08/05/2018 Ancillary Orders Virtual Department [address] [place] [address] Arya Goldstein MD [address] [facility], [address] [place] [address] [email or web address] Simple renal cyst; Other microscopic hematuria Social History Tobacco Use Types Packs/Day Years Used Date Smoking Tobacco: Never Smokeless Tobacco: Never Sex and Gender Information Value Date Recorded Sex Assigned at Male 09/23/2018 11:07 AM EST Legal Sex Male 9:59 PM EDT Gender Identity Male 09/23/2018 11:07 AM EST Sexual Orientation Straight 09/23/2018 11 :07 AM EST documented as of this encounter Plan of Treatment Upcoming Encounters Date Type Department Care Team (Late st Contact Info) Description 08/10/2025 9:45 AM EST Office Visit [facility] [address] [facility] 3rd Floor, [address] [place] [address] Juve Robledo DO [address] [facility] [address] [place] [address] [email or web address] documented as of this encounter Results * US Kidneys (09/10/2018 7:51 AM EST) Anatomical Region Laterality Modality Abdomen, Kidney Ultrasound 09/10/2018 8:12 AM EST Impressions 09/10/2018 8:45 AM EST No change in right renal cyst which was seen to have a thick wall and has internal debris and slightly thickened wall today but no change in size, progressive solid component, or color-flow apparent. POS [id number] Edited by: Sherin Daniel on 09/10/2018 8:35 AM Narrative 09/10/2018 8:45 AM EST COMPARISON: November 14, [address] May 16, 2016 FINDINGS: Kidneys: Right kidney again noted to have a horizontal axis. Right kidney measured at 11.1 cm in length and left 10.5 cm. Thick-walled, complicated right renal cyst is essentially unchanged in size measuring 2.5 x 1.5 x 1.57 cm compared to 2.0 x 1.7 x 1.7 cm on prior ultrasound. No new masses. No stones detected. There is no hydronephrosis. 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 Procedure Note Juve Srinivasan MD - 09/10/2018 COMPARISON: November 14, [address] May 16, 2016 FINDINGS: Kidneys: Right kidney again noted to have a horizontal axis. Right kidneymeasured at 11.1 cm in length and left 10.5 cm. Thick-walled, complicatedright renal cyst is essentially unchanged in size measuring 2.5 x 1.5 x1.57 cm compared to 2.0 x 1.7 x 1.7 cm on prior ultrasound. No new masses.No stones detected. There is no hydronephrosis. 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 IMPRESSION: No change in right renal cyst which was seen to have a thick wall and hasinternal debris and slightly thickened wall today but no change in size,progressive solid component, or color-flow apparent. POS [id number] Edited by: Sherin Daniel on 09/10/2018 8:35 AM us Arya Goldstein MD [facility] RENAL Final Result documented in this encounter Visit Diagnoses Diagnosis Simple renal cyst Acquired cyst of kidney Other microscopic hematuria Simple renal cyst Acquired cyst of kidney Other microscopic hematuria documented in this encounter Additional Health Concerns [...] documented as of this encounter Care Teams Proj Engineer Relationship Specialty Start Date End Date Reji Stout DO [email or web address] PCP - General 06/21/17 01/02/19 Reji Stout DO PCP - General Internal Medicine 01/03/19 Nigel Gunderson DO [address] [place] [address] [email or web address] Primary Oncologist Hematology and Oncology 05/05/21 Delmy Garcia NP [address] [place] [address] [email or web address] Nurse Practitioner Medical Oncology 05/05/21 documented as of this encounter Additional Source Comments The information contained in this document represents components of the legal health record. It is not the complete legal health record.[facility]
--- OUTSIDE RECORDS SUMMARY | 2025-07-27 15:07 | XMS_ITS | Encounter Summary ---
Author Organization [facility] Address [address] [place] [address] Phone Care Team Providers Care Ophthalmic Aide Name Role Phone Reji Stout DO Primary Care Provider [phone] Reji Stout DO Primary Care Provider [phone] Nigel Gunderson DO Unavailable [phone] Delmy Garcia SENIOR ORACLE DEVELOPER Unavailable [phone] Encounter Details Date Type Department Care Team (Late st Contact Info) Description 10/16/2018 Ancillary Orders Virtual Department [address] [place] [address] Reji Stout DO [address] [facility] [place] [address] [place] [address] [email or web address] Pneumonia due to infectious organism, unspecified laterality, unspecified part of lung Social History Tobacco Use Types Packs/Day Years [...] Description 08/10/2025 9:45 AM EST Office Visit [facility] [address] [facility] 3rd Floor, [address] [place] [address] Ezra Robledo DO [address] [facility] [address] [place] [address] documented as of this encounter Results * XR CHEST PA AND LATERAL 2 VIEWS (10/17/2018 10:02 AM EST) Anatomical Region Laterality Modality Chest Radiographic Rima ging 10/17/2018 10:1 9 AM EST Impressions 10/17/2018 10:21 AM EST No focal infiltrate or other acute cardiopulmonary abnormality apparent. POS [id number] Narrative 10/17/2018 10:21 AM EST COMPARISON: 08/31/2012 radiograph seven 07/31/2016 CT FINDINGS: PA and lateral views reveal the lungs to be well-expanded. No acute airspace infiltrates or pleural effusions are demonstrated. Heart and pulmonary vessels are stable in size. No pulmonary edema pattern is noted. Visualized bony thorax is grossly intact. Procedure Note Judy Bhandari MD - 10/17/2018 COMPARISON: 08/31/2012 radiograph seven 07/31/2016 CT FINDINGS: PA and lateral views reveal the lungs to be well-expanded. No acuteairspace infiltrates or pleural effusions are demonstrated. Heart andpulmonary vessels are stable in size. No pulmonary edema pattern isnoted. Visualized bony thorax is grossly intact. IMPRESSION: No focal infiltrate or other acute cardiopulmonary abnormality apparent. POS [id number] us Reji A Bigda DO IMG XR CHEST Final Result documented in this encounter Visit Diagnoses Diagnosis Pneumonia due to infectious organism, unspecified laterality, unspecified part of lung Pneumonia due to infectious organism, unspecified laterality, unspecified part of lung documented in this encounter Additional Health Concerns Infection Onset Date Last Indicated Resolved Time CoV-Risk 07/23/2020 07/26/2020 08/06/2020 1:24 AM EST CoV-Exposed 11/16/2021 11/21/2021 11/27/2021 1:22 AM EDT CoV-Risk Comment:2 neg covid 06/25/2022 06/27/2022 06/27/2022 10:27 AM EDT Rhino/Entero 06/26/2022 06/26/2022 07/03/2022 1:2 2 AM EDT CoV-Risk 08/20/2022 08/20/2022 08/31/2022 1:22 AM EST CoV-Risk Comment:Neg covid 02/12/2023 02/12/2023 02/13/2023 6:46 AM E DT documented as of this encounter Care Teams Ophthalmic Aide Relationship Specialty Start Date End Date Reji Stout DO [email or web address] PCP - General 06/21/17 01/02/19 Reji Stout DO PCP - General Internal Medicine 01/03/19 Nigel Gunderson DO [address] [place] [address] [email or web address] Primary Oncologist Hematology and Oncology 05/05/21 Delmy Garcia NP [address] [place] [address] [email or web address] Nurse Practitioner Medical Oncology 05/05/21 documented as of this encounter Additional Source Comments The information contained in this document represents components of the legal health record. It is not the complete legal health record.[facility]
--- OUTSIDE RECORDS SUMMARY | 2025-07-27 15:07 | XMS_ITS | Encounter Summary ---
Author Organization [facility] Address [address] [facility] [address] [place] [address] Phone Care Team Providers Care Sales Project Administrator Name Role Phone Reji Stout DO Primary Care Provider [phone] Reji Stout DO Primary Care Provider [phone] Nigel Gunderson DO Unavailable Delmy Garcia LUMBER SORTER MACHINE Unavailable [phone] Encounter Details Date Type Department Care Team (Late st Contact Info) Description 03/19/2018 Transcribe Orders [facility] Ph[facility] Main [address] [place] [address] Reji Stout DO [address] [facility] [place] [address] [place] [address] Pure hypercholesterolemia (Primary Dx) Social History Tobacco Use Types [...] Description 08/10/2025 9:45 AM EST Office Visit [facility] [address] [facility] 3rd Floor, [address] [place] [address] Ezra Robledo DO [address] [facility] [address] [place] [address] [email or web address] documented as of this encounter Results * (ABNORMAL) Comprehensive metabolic panel (03/19/2018 8:08 AM EDT) SODIUM 143 133 - 146 mmol/L [facility] POTASSIUM 3.5 3.3 - 5.1 mmol/L [facility] CHLORIDE 104 96 - 108 mmol/L [facility] CO2 27 21 - 35 mmol/L [facility] BUN 13 6 - 19 mg/dL [facility] CREATININE 0.70 0.5 - 1.5 mg/dL [facility] GLUCOSE 100(H) 70 - 99 mg/dL [facility] ALBUMIN 4.1 3.9 - 4.8 g/dL [facility] TOTAL PROTEIN 6.9 6.5 - 8.0 g/dL [facility] CALCIUM 9.3 8.4 - 10.3 mg/dL [facility] ALKALINE PHOSPHATASE 65 39 - 117 U/L [facility] TOTAL BILIRUBIN 1.3(H) 0.0 - 1.2 mg/dL [facility] AST 38(H) 0 - 37 U/L [facility] ALT 30 0 - 40 U/L [facility] GLOBULIN 2.8 1 - 4.8 g/dL [facility] EGFR 99 >59 mL/min/1.7 3m2 [facility] Comment:If patient is black, multiply result by 1.159. Estimated glomerular filtration rate calculated using the CKD-EPI equation. ANION GAP 16 10 - 20 mmol/L [facility] Blood 03/19/2018 8:08 AM EDT 03/19/2018 8:11 AM EDT us Reji A Bigda DO LAB BLOOD BKR ORDERABLES Final R esult Performing Organization Address [facility]/ZIP Co de Phone Number [address] [address] * (ABNORMAL) Lipid panel (03/19/2018 8:08 AM EDT) HDL 94 mg/dL [facility] Comment: Interpretation: Risk Level Males Decreased >45 mg/dL Average 40-45 mg/dL Increased <40 mg/dL CHOLESTEROL 172 0 - 240 mg/dL [facility] TRIGLYCERIDES 123 30 - 160 mg/dL [facility] LDL 53 50 - 129 mg/dL [facility] Comment: LDL levels in terms of risk for coronary heart disease: <100 mg/dL: Optimal 100-129 mg/dL: Near or above optimal 130-159 mg/dL: Borderline high 160-189 mg/dL: High >190 mg/dL: Very High CARDIAC RISK RATIO 1.8(L) 3.4 - 5.0 C [facility] Blood 03/19/2018 8:08 AM EDT 03/19/2018 8:11 AM EDT us Reji A Bigda DO LAB BLOOD BKR ORDERABLES Final R esult Performing Organization Address [facility]/ZIP Co de Phone Number [address] [address] documented in this encounter Visit Diagnoses Diagnosis Pure hypercholesterolemia- Primary documented in this encounter Additional Health [...] documented as of this encounter Care Teams Sales Project Administrator Relationship Specialty Start Date End Date Reji Stout DO PCP - General 06/21/17 01/02/19 Reji Stout DO PCP - General Internal Medicine 01/03/19 Nigel Gunderson DO [address] [place] [address] [email or web address] Primary Oncologist Hematology and Oncology 05/05/21 Delmy Garcia NP [address] [place] [address] [email or web address] Nurse Practitioner Medical Oncology 05/05/21 documented as of this encounter Additional Source Comments The information contained in this document represents components of the legal health record. It is not the complete legal health record.[facility]
--- OUTSIDE RECORDS SUMMARY | 2025-07-27 15:08 | XMS_ITS | Encounter Summary ---
Author Organization [facility] Address [address] [place] [address] Phone Care Team Providers Care Agronomy Professor Name Role Phone ElvincarolyneReji DO Primary Care Provider [phone] Nigel Gunderson DO Unavailable [phone] Delmy Garcia BOWLING FLOOR MANAGER Unavailable Encounter Details Date Type Department Care Team (Latest Contact Info) Description 03/07/2019 Transcribe Orders [facility] Phleb Main [address] [place] [address] Emmanuel Conklin MD [address] [place] [address], [address] [place] [address] [email or web address] Numbness (Primary Dx) Social History Tobacco Use Types [...] Description 08/10/2025 9:45 AM EST Office Visit [facility] [address] [facility] 3rd Floor, [address] [place] [address] Ezra Robledo, [address] [facility] [address] [place] [address] [email or web address] documented as of this encounter Results * Methylmalonic acid, serum (03/07/2019 3:52 PM EDT) METHYLMALONIC ACID 0.23 <=0.40 nmol/mL [facility] DPT OF LAB MED AND PAT+ Comment: (NOTE) ADDITIONAL INFORMATION This test was developed and its performance characteristics determined by [facility] in a manner consistent with CLIA requirements. This test has not been cleared or approved by the U.S. Food and Drug Administration. Blood 03/07/2019 3:52 PM EDT 03/07/2019 3:55 PM EDT us Emmanuel Conklin MD LAB BLOOD ORDERABLES Final R esult [facility] DPT OF LAB MED AND PAT+ [address] [place] [address] * Vitamin B12 (03/07/2019 3:52 PM EDT) VITAMIN B12 462 232 - 1,245 pg/mL [facility] Blood 03/07/2019 3:52 PM EDT 03/07/2019 3:55 PM EDT us Emmanuel Conklin MD LAB BLOOD BKR ORDERABLES Fin al Result [facility] [address] [place] [address] documented in this encounter Visit Diagnoses Diagnosis Numbness- Primary Disturbance of skin sensation documented in this encounter Additional Health Concerns [...] documented as of this encounter Care Teams Agronomy Professor Relationship Specialty Start Date End Date Reji Stout DO [email or web address] PCP - General Internal Medicine 01/03/19 Nigel Gunderson DO [address] [place] [address] [email or web address] Primary Oncologist Hematology and Oncology 05/05/21 Delmy Garcia NP [address] [place] [address] [email or web address] Nurse Practitioner Medical Oncology 05/05/21 documented as of this encounter Additional Source Comments The information contained in this document represents components of the legal health record. It is not the complete legal health record.[facility]
--- OUTSIDE RECORDS SUMMARY | 2025-07-27 15:08 | XMS_ITS | Encounter Summary ---
Author Organization [facility] Address [address] [place] [address] Phone Care Team Providers Care Parks And Recreation Manager Name Role Phone Reji Stout DO Primary Care Provider [phone] Nigel Gunderson DO Unavailable Delmy Garcia TABULATING CLERK Unavailable [phone] Encounter Details Date Type Department Care Team (Late st Contact Info) Description 11/15/2021 Procedure Pass [facility], Ct Scan - [address] [address] Social History Tobacco Use Types Packs/Day Years Used Date Smoking Tobacco: Never Smokeless Tobacco: Never Alcohol Use Standard Drinks/Week Comments Not Currently 0 (1 standard drink = 0.6 oz [...] Date of Assessment Author No Risk Indicated 11/15/2021 3:19 PM EDT Sangeetha Conte RN * [place] Suicide Severity Rating Scale (Screener/Recent Self-Report) Question Answer Date of Assessment Author 1. Wish to be (Past 1 Month) No 11/15/2021 3:19 PM EDT Sangeetha Conte RN 2. Non-Specific Active Suici sugar Thoughts (Past 1 Month) No 11/15/2021 3:19 PM EDT Conrado Conte RN 6. Suicidal Behavior (Lifetime) No 3:19 PM EDT Sangeetha Conte RN documented as of this encounter Plan of Treatment Upcoming Encounters Date Type Department Care Team (Late st Contact Info) Description 08/10/2025 9:45 AM EST Office Visit [facility] [address] [place] [address] [address] [facility], [address] [place] [address] Ezra Robledo DO [address] [place] [address] [email or web address] documented as of this encounter Visit Diagnoses [...] documented as of this encounter Care Teams Parks And Recreation Manager Relationship Specialty Start Date End Date Reji Stout DO [email or web address] PCP - General Internal Medicine 01/03/19 Nigel Gunderson DO [address] [place] [address] [email or web address] Primary Oncologist Hematology and Oncology 05/05/21 Delmy Garcia NP [address] [place] [address] [email or web address] Nurse Practitioner Medical Oncology 05/05/21 documented as of this encounter Additional Source Comments The information contained in this document represents components of the legal health record. It is not the complete legal health record.[facility]
--- OUTSIDE RECORDS SUMMARY | 2025-07-27 15:08 | XMS_ITS | Encounter Summary ---
Author Organization [facility] Address [address] [place] [address] Phone Care Team Providers Care Sushi Chef Name Role Phone Reji Stout DO Primary Care Provider [phone] Nigel Gunderson DO Unavailable [phone] Delmy Garcia INSIDE SALES REPRESENTATIVE Unavailable [phone] Encounter Details Date Type Department Care Team (Late st Contact Info) Description 02/16/2023 Procedure Pass [facility] Endoscopy Admitting Dept Virtual Department [address] [place] [address] Social History Tobacco Use Types Packs/Day Years Used Date Smoking Tobacco: Never Smokeless Tobacco: Never Alcohol Use Standard Drinks/Week Comments Not Currently 0 (1 standard drink = 0.6 oz pur e alcohol) 3 drinks a day Education Answer Date Recorded Are you interested in more education? Not on shan e 12/29/2022 Are you concerned about learning? Not on file 12/29/2022 No 12/29/2022 No 12/29/2022 Digital Access Answer Date Recorded No 01/27/2023 No 01/27/2023 Reliable internet access at home? Not on file 01/27/2023 Device with a working camera? Not on file Intimate Partner Violence Answer Date R ecorded Are you denied basic needs s uch as food, clothing, or medical care? No 02/12/2023 In the past 12 months have y ou been in a relationship with a person who hurts, threatens, or tries to control you? No 02/12/2023 Are you denied basic needs s uch as food, clothing, or medical care? No 02/12/2023 In the past 12 months have y ou been in a relationship with a person who hurts, threatens, or tries to control you? No 02/12/2023 Sex and Gender Information Value Date Recorded Sex Assigned at Male 09/23/2018 11:07 AM EST Legal Sex Male 9:59 PM EDT Gender Identity Male 09/23/2018 11:07 AM EST Sexual Orientation Straight 09/23/2018 11 :07 AM EST documented as of this encounter Plan of Treatment Upcoming Encounters Date Type Department Care Team (Late st Contact Info) Description 08/10/2025 9:45 AM EST Office Visit [facility] [address] [place] [address], [address] [place] [address] Ezra Robledo DO [address] [place] [address] [email or web address] documented as of this encounter Visit Diagnoses Not on filedocumented in this encounter Care Teams Sushi Chef Relationship Specialty Start Date End Date Reji Stout DO PCP - General Internal Medicine 01/03/19 Nigel Gunderson DO [address] [place] [address] [email or web address] Primary Oncologist Hematology and Oncology 05/05/21 Delmy Garcia NP [address] [place] [address] (work) [email or web address] Nurse Practitioner Medical Oncology 05/05/21 documented as of this encounter Additional Source Comments The information contained in this document represents components of the legal health record. It is not the complete legal health record.[facility]
--- OUTSIDE RECORDS SUMMARY | 2025-07-27 15:08 | XMS_ITS | Encounter Summary ---
Author Organization [facility] Address [address] [place] [address] Phone Care Team Providers Care Outside Plant Supervisor Name Role Phone ElvincarolyneReji DO Primary Care Provider [phone] Nigel Gunderson DO Unavailable [phone] Delmy Garcia SALES AGENT TRADING STAMPS Unavailable [phone] Encounter Details Date Type Department Care Team (Latest Contact Info) Description 03/13/2023 Transcribe Orders Virtual Department [address] [place] [address] Alysa Castro PA [address] [place] [address] [place] [address] Thyroiditis, unspecified (Primary Dx) Social History Tobacco Use Types [...] Description 08/10/2025 9:45 AM EST Office Visit [facility] [address] [place] [address] 3rd [facility], [address] [place] [address] Ezra Robledo DO [address] [place] [address] [email or web address] documented as of this encounter Results * US Thyroid Gland (03/23/2023 2:53 PM EDT) Anatomical Region Laterality Modality Neck, Head, Chest Ultrasound 03/24/2023 5:20 AM EDT Impressions 03/24/2023 5:22 AM EDT Diffuse thyroid parenchymal heterogeneity, which is nonspecific but can be seen in the setting of thyroiditis or hyperstimulation/Graves' disease. RECOMMENDATION: Consider endocrinology workup, if not already performed. Narrative 03/24/2023 5:22 AM EDT US THYROID GLAND TECHNIQUE: Ultrasound of the thyroid. COMPARISON: CT CERVICAL SPINE WITHOUT CONTRAST FINDINGS: Right Thyroid: The right lobe measures 5.0 cm in sagittal dimension. Mild diffuse parenchymal heterogeneity without a discrete nodule. No right sided adenopathy is detected. Left Thyroid: The left lobe measures 5.0 cm in sagittal dimension. Mild diffuse parenchymal heterogeneity without a discrete nodule. No left sided adenopathy is detected. Procedure Note Reji Ruiz MD - 03/24/2023 US THYROID GLAND TECHNIQUE: Ultrasound of the thyroid. COMPARISON: CT CERVICAL SPINE WITHOUT CONTRAST FINDINGS: Right Thyroid: The right lobe measures 5.0 cm in sagittal dimension. Mild diffuse parenchymal heterogeneity without a discrete nodule. No right sided adenopathy is detected. Left Thyroid: The left lobe measures 5.0 cm in sagittal dimension. Mild diffuse parenchymal heterogeneity without a discrete nodule. No left sided adenopathy is detected. IMPRESSION: Diffuse thyroid parenchymal heterogeneity, which is nonspecific but can beseen in the setting of thyroiditis or hyperstimulation/Graves' disease. RECOMMENDATION: Consider endocrinology workup, if not already performed. Alysa HANDY IM US THYROID Final Resul t documented in this encounter Visit Diagnoses Diagnosis Thyroiditis, unspecified- Primary Thyroiditis, unspecified documented in this encounter Care Teams Outside Plant Supervisor Relationship Specialty Start Date End Date Reji Stout DO [email or web address] PCP - General Internal Medicine 01/03/19 Nigel Gunderson DO [address] [place] [address] [email or web address] Primary Oncologist Hematology and Oncology 05/05/21 Delmy Garcia NP [address] [place] [address] [email or web address] Nurse Practitioner Medical Oncology 05/05/21 documented as of this encounter Additional Source Comments The information contained in this document represents components of the legal health record. It is not the complete legal health record.[facility]
--- OUTSIDE RECORDS SUMMARY | 2025-07-27 15:08 | XMS_ITS | Encounter Summary ---
Author Organization [facility] Address [address] [place] [address] Phone Care Team Providers Care Cotton Seed Culler Name Role Phone Reji Stout DO Primary Care Provider [phone] Reji Stout DO Primary Care Provider [phone] Nigel Gunderson DO Unavailable [phone] Delmy Garcia CHIP LOFT WORKER Unavailable [phone] Encounter Details Date Type Department Care Team (Latest Contact Info) Description 09/11/2017 Transcribe Orders [facility] Phle[facility] [address] [address] Arya Goldstein MD [address] [facility], [address] [place], [place] [id number] BPH with urinary obstruction (Primary Dx) Social History Tobacco Use Types [...] Description 08/10/2025 9:45 AM EST Office Visit [facility] [address] [facility] 3rd Floor, [address] [place] [address] Ezra Robledo DO [address] [facility] [address] [place] [address] [email or web address] documented as of this encounter Results * PSA (screening) (09/11/2017 3:50 PM EST) PSA 0.64 0 - 4.00 ng/mL [facility] Blood 09/11/2017 3:50 PM EST 09/11/2017 3:53 PM EST us Arya Goldstein MD LAB BLOOD BKR ORDERABLES Final Result [facility] [address] [place] [address] documented in this encounter Visit Diagnoses Diagnosis BPH with urinary obstruction- Primary Hypertrophy of prostate with urinary obstruction and other lower urinary tract symptoms (LUTS) documented in this encounter Additional Health Concerns [...] documented as of this encounter Care Teams Cotton Seed Culler Relationship Specialty Start Date End Date Reji StoutDO [email or web address] PCP - General 06/21/17 01/02/19 ElvinReji barfieldDO PCP - General Internal Medicine 01/03/19 Nigle Gunderson DO [address] [place] [address] [email or web address] Primary Oncologist Hematology and Oncology 05/05/21 Delmy Garcia NP [address] [place] [address] [email or web address] Nurse Practitioner Medical Oncology 05/05/21 documented as of this encounter Additional Source Comments The information contained in this document represents components of the legal health record. It is not the complete legal health record.[facility]
--- OUTSIDE RECORDS SUMMARY | 2025-07-27 15:08 | XMS_ITS | Encounter Summary ---
Author Organization [facility] Address [address] [place] [address] Phone Care Team Providers Care Professional Fee Coder Name Role Phone Reji Stout DO Primary Care Provider [phone] Nigel Gunderson DO Unavailable [phone] Delmy Garcia LEAN MANUFACTURING LEADER Unavailable [phone] Encounter Details Date Type Department Care Team (Late st Contact Info) Description 02/12/2023 Procedure Pass [facility], Ct Scan - [address] [address] Social History Tobacco Use Types Packs/Day Years [...] Date of Assessment Author No Risk Indicated 02/13/2023 12:20 AM EDT Rehana Wilkins RN * [place] Suicide Severity Rating Scale (Screener/Recent Self-Report) Question Answer Date of Assessment Author 1. Wish to be (Past 1 Month) No 02/13/2023 12:20 AM EDT Rehana Rogers RN 2. Non-Specific Active Suicidal Thoughts (Past 1 Month) No 02/13/2023 12:20 AM EDT Rehana Rogers RN 6. Suicidal Behavior (Lifetime) No 02/13/2023 12:20 AM EDT Rehana Rogers RN documented as of this encounter Plan of Treatment Upcoming Encounters Date Type Department Care Team (Late st Contact Info) Description 08/10/2025 9:45 AM EST Office Visit [facility] [address] [place] [address] 3rd Floor, [address] [place], [place] [id number] Ezra Robledo DO [address] [facility] [address] [place] [address] documented as of this encounter Visit Diagnoses Not on filedocumented in this encounter Additional Health Concerns Infection Onset Date Last Indicated Resolved Time CoV-Risk Comment:Neg covid 02/12/2023 02/12/2023 02/13/2023 6:46 AM E DT documented as of this encounter Care Teams Professional Fee Coder Relationship Specialty Start Date End Date Reji Stout DO [email or web address] PCP - General Internal Medicine 01/03/19 Nigel Gunderson DO [address] [place] [address] [email or web address] Primary Oncologist Hematology and Oncology 05/05/21 Delmy Garcia NP [address] [place] [address] [email or web address] Nurse Practitioner Medical Oncology 05/05/21 documented as of this encounter Additional Source Comments The information contained in this document represents components of the legal health record. It is not the complete legal health record.[facility]
--- OUTSIDE RECORDS SUMMARY | 2025-07-27 15:08 | XMS_ITS | Encounter Summary ---
Author Organization [facility] Address [address] [place] [address] Phone Care Team Providers Care Quitline Counselor Name Role Phone Reji Stout DO Primary Care Provider [phone] Nigel Gunderson DO Unavailable [phone] Delmy Garcia SCREEN PRINTING INSPECTOR Unavailable Encounter Details Date Type Department Care Team (Late st Contact Info) Description 11/15/2021 Procedure Pass [facility], [address] [address] Social History Tobacco Use Types Packs/Day Years [...] 3:19 PM EDT Sangeetha Conte RN * [place] Suicide Severity Rating Scale (Screener/Recent Self-Report) Question [...] Description 08/10/2025 9:45 AM EST Office Visit [facility] [address] [place] [address] 3rd [facility], [address] [place] [address] Ezra Robledo DO [address] [place] [address] [email or web address] documented as of this encounter Visit Diagnoses [...] documented as of this encounter Care Teams Quitline Counselor Relationship Specialty Start Date End Date Reji Stout DO [email or web address] PCP - General Internal Medicine 01/03/19 Nigel Gunderson DO [address] [place] [address] [email or web address] Primary Oncologist Hematology and Oncology 05/05/21 Delmy Garcia NP [address] [place] [address] [email or web address] Nurse Practitioner Medical Oncology 05/05/21 documented as of this encounter Additional Source Comments The information contained in this document represents components of the legal health record. It is not the complete legal health record.[facility]
--- OUTSIDE RECORDS SUMMARY | 2025-07-27 15:08 | XMS_ITS | Encounter Summary ---
Author Organization [facility] Address [address] [place] [address] Phone Care Team Providers Care Chief Technician Name Role Phone Reji Stout DO Primary Care Provider [phone] Nigel Gunderson DO Unavailable [phone] Delmy Garcia ORTHODONTIC LAB TECHNICIAN Unavailable [phone] Encounter Details Date Type Department Care Team (Late st Contact Info) Description 11/23/2021 Procedure Pass [facility], Ct Scan - [address] [address] Social History Tobacco Use Types Packs/Day Years [...] Description 08/10/2025 9:45 AM EST Office Visit [facility] [address] [facility] 3rd Floor, [address] [place] [address] Ezra Robledo DO [address] [facility] [address] [place] [address] [email or web address] documented as of this encounter Visit Diagnoses [...] documented as of this encounter Care Teams Chief Technician Relationship Specialty Start Date End Date Reji Stout DO PCP - General Internal Medicine 01/03/19 Nigel Gunderson DO [address] [place] [address] [email or web address] Primary Oncologist Hematology and Oncology 05/05/21 Delmy Garcia NP [facility] [place] [address] [email or web address] Nurse Practitioner Medical Oncology 05/05/21 documented as of this encounter Additional Source Comments The information contained in this document represents components of the legal health record. It is not the complete legal health record.[facility]
--- OUTSIDE RECORDS SUMMARY | 2025-07-27 15:08 | XMS_ITS | Clinical Summary ---
Author Organization [facility] Address [address] [place] [address] Phone Care Team Providers Care Product Manufacturing Professional Name Role Phone Triny Carver DO Primary Care Provider [phone] Nigel Gunderson DO Unavailable [phone] Delmy Garcia MEDICAL INTERPRETER Unavailable [phone] Allergies No known active allergies Medications aspirin 81 mg chewable tablet 1 tablet Acti ve Saccharomyces boulardii (PROBIOTIC, S.BOULARDII, ORAL) Take 1 capsule by mouth. Active cholestyramine- aspartame (QUESTRAN LIGHT) 4 gram PwPk Take 4 g by mouth nightly at bedtime. Active donepeziL (ARICEPT) 10 MG tablet Take 10 mg by mouth nightly at bedtime. 01/13/2022 Active diazePAM (VALIUM) 2 MG tablet Take 2 mg by mouth every 12 (twelve) hours as needed. Active gabapentin (NEURONTIN) 100 MG capsule Take 100 mg by mouth daily. 04/17/2022 Active cyanocobalamin, vitamin B-12, 1000 MCG tablet Take 1,000 mcg by mouth daily. Active albuterol 90 mcg/actuation inhaler Inhale 2 puffs into the lungs every 4 (four) hours as needed. 18 g 02/17/2023 Active multivitamins capsule Take 1 capsule by mouth daily. Active ondansetron (ZOFRAN) 8 MG tablet Take 1 tablet by mouth 2 (two) times a day. 07/10/2023 Active QUEtiapine (SEROQUEL) 50 MG tablet Take 1 tablet by mouth 2 (two) times a day. 10/04/2023 Active buPROPion (WELLBUTRIN SR) 150 MG SR 12 hr tablet Take 1 tablet by mouth 2 (two) times a day. 05/31/2024 Active TRELEGY ELLIPTA 200-62.5-25 mcg inhaler Inhale into the lungs daily. 10/07/2024 Active cholestyramine (QUESTRAN) 4 gram packet MIX 1 PACKET IN LIQUID AND DRINK EVERY DAY 12/04/2024 Active metoprolol succinate (TOPROL-XL) 50 MG 24 hr tablet Take 1 tablet (50 mg total) by mouth daily. 90 tablet 3 12/17/2024 Active hydroCHLOROthia zide 25 MG tablet Take 1 tablet (25 mg total) by mouth daily. 90 tablet 3 12/17/2024 Active Active Problems Patient Care Coordination No te Formatting of this note migh t be different from the original. Height 166cm no shoes on. 12/08/2022 Problem Noted Date Diagnosed Date Pulmonary nodule 02/15/2023 02/15/2023 Assessment & Plan (03/12/2023 11:55 AM EDT): He has moderate COPD which is probably the source of his shortness of breath I am sending him to my partner Dr. Arvizu for an evaluation Atrial tachycardia 05/18/2022 Assessment & Plan (06/18/2024 11:09 AM EDT): His had some supraventricular arrhythmias in the past which have not recurred echo is normal stress test was normal Assessment & Plan (12/05/2023 11:45 AM EDT): Asymptomatic and controlled Assessment & Plan (07/23/2023 11:26 AM EST): Asymptomatic Assessment & Plan (11/21/2022 12:56 PM EDT): All normal sinus rhythm Assessment & Plan (06/28/2022 5:45 PM EDT): -recently been in the care of a accounting file clerk for some chronic dyspnea with exertion, has had syncopal episodes although not immediately prior to this hospitalization. Has had extensive work-up including a nuclear stress test in February that showed no acute pathology and echo that showed a normal ejection fraction and no wall motion abnormality. - ASA - Diltiazem Assessment & Plan (05/18/2022 4:13 PM EDT): Symptoms well controlled on diltiazem. Continue at 180 mg daily. Constant vertigo 11/15/2021 Assessment & Plan (11/15/2021 9:02 PM EDT): - does not have room spinning sensation but dizziness does seem to be positional - reviewed recent hall monitor, largely reassuring with 3 short episodes of SVT, 1 short episode NSVT - otherwise sinus, does not explain the prolonged dizziness he has had for 2 months - wkup for central vertigo - cont neuro wkup with MRI brain and echo - check orthostatic vital signs - PT consult - for nausea, continue zofran, could also try meclizine Benign essential hypertension 10/25/2021 Assessment & Plan (12/17/2024 11:00 AM EDT): This is poorly controlled as above we are going to stop his diltiazem and substitute metoprolol and hydrochlorothiazide to take in the evening time. Goal should be less than 130 systolic. 2. Lipids: Very well-controlled with the exception of his triglycerides he is eating ice cream on a daily basis and eggs almost every single day which I cautioned him on we will recheck in 7 to 9 months time. Assessment & Plan (06/18/2024 11:09 AM EDT): Elevated today but recheck was normal goal should be less than 130 systolic Assessment & Plan (12/05/2023 11:45 AM EDT): At this time well-controlled after reviewing an extensive blood pressure log Assessment & Plan (07/23/2023 11:26 AM EST): Inadequately controlled I am going to inch up on his diltiazem from 1 80-2 40 and change the time he takes it to the evening time Assessment & Plan (03/12/2023 11:55 AM EDT): Reasonably well-controlled but we are going to need some measurements to fully understand if the medications that he is taking are the proper once I will have him construct a blood pressure log and see him thereafter in follow-up Assessment & Plan (02/13/2023 2:49 AM EDT): Patient follows Dr. Robledo. He was seen in November 2022 with BP noted 156/62. Hydrochlorothiazide was added at the time along with Cardizem 240 mg daily and lisinopril 40 mg daily. -Holding BP medications due to hypotension. -Continue to monitor closely Assessment & Plan (11/21/2022 12:55 PM EDT): Not well controlled at this time we are adding hydrochlorothiazide and we will follow-up in 4-month Assessment & Plan (05/18/2022 4:13 PM EDT): BP elevated in office today, although he tells me that this is always an issue when he comes to medical appointments. For now, we will continue diltiazem and lisinopril at current doses. I've asked that he check his blood pressure over the next few weeks at home. He will call our office if he notices at his systolic is consistently over 130 mmHg and we can make medication adjustments as necessary at that time. Assessment & Plan (11/15/2021 9:01 PM EDT): - blood pressures elevated - check orthostatic vs to see if he is having positional hypotension - at this point his symptoms are chronic, feel we can continue his antihypertensive regimen of diltiazem and lisinopril - with hold parameters Frontotemporal dementia 02/25/2019 02/16/20 Assessment & Plan (12/05/2023 11:45 AM EDT): Definitely present but stable I do not notice a significant difference between last visit and now Urinary retention 04/16/2018 02/15/2023 Malignant neoplasm of colon 08/01/2017 Regular alcohol consumption 09/03/2009 Assessment & Plan (12/17/2024 11:00 AM EDT): He drinks alcohol on a regular basis which will also raise his blood pressure. Coronary artery disease Assessment & Plan (12/17/2024 11:01 AM EDT): Completely asymptomatic Assessment & Plan (06/18/2024 11:09 AM EDT): Completely asymptomatic I would aim for an LDL goal of less than 70 he currently is not on a statin agent Assessment & Plan (07/23/2023 11:27 AM EST): Also asymptomatic Assessment & Plan (03/12/2023 11:55 AM EDT): He does not have active coronary disease Assessment & Plan (02/13/2023 2:48 AM EDT): History of CAD most recent nuclear stress test in February 2022 showed normal perfusion imaging with no fixed or reversible defects. Assessment & Plan (06/26/2022 11:56 AM EDT): Resolved Problems Problem Noted Date Diagnosed Date Resolved Date Acute renal failure, unspeci fied acute renal failure type 02/13/2023 02/17/2023 Assessment & Plan (02/13/2023 2:44 AM EDT): Patient presented with acute kidney injury in the setting of poor oral intake and GI loss from viral illness. Creatinine elevated at 5.0, most recently 1.3 2 months ago. -Adding on urine creatinine and urine sodium to calculate FENA -Continue IV fluid with LR 125 cc/h x 1 additional liter -Repeating BMP in the morning -Obtaining kidney bladder ultrasound -Bladder scan in the morning to rule out retention -Holding off nephrotoxic drugs including hydrochlorothiazide and lisinopril. -Nephrology consultation if not improved in the morning Chest pressure 11/15/2021 02/15/2023 Assessment & Plan (11/15/2021 9:04 PM EDT): - he down plays the chest discomfort in the history, but reports he has had it on and off recently - troponins and EKG currently reassuring - echo is pending - he may need cardiac stress testing in the near future - requested cardiac consult, he says he has recently established care with Dr. Benítez of [facility] cardiology Syncope and collapse 10/25/2021 023 Assessment & Plan (02/13/2023 2:46 AM EDT): Patient likely had a presyncopal episode as patient was aware at the time of the fall. Suspect due to hypotension in the setting of poor oral intake and GI loss. -Continue on telemetry to rule out any dysrhythmias -Obtaining orthostatics in the morning -Fall precautions. Assessment & Plan (11/21/2022 12:55 PM EDT): He has not had syncope in a very long time Acute respiratory failure with hypoxia 09/03/2009 02/15/2023 Assessment & Plan (06/29/2022 4:36 PM EDT): White blood cell count 17,000, heart rate 99 in the ED, initially respiratory rate was 28, SIRS criteria present. Chest x-ray shows mild perihilar engorgement and CTPA which was done for D-dimer of 900 showed no PE or pneumonia but bronchitis. Pt with severe hypoxia 06/26 PM requiring 10-12l OM. Repeat CXR clear. Procalcitonin was elevated - Given severity of illness and possible response to abx completed 5 days Ceftriaxone/and 3 days Azithromycin -Respiratory pathogen PCR panel showed rhinovirus positive and sputum culture shows mixed kinsye, it is likely his symptoms are viral but does not fully rule out a secondary bacterial infection - weaning off oxygen today - completed antibiotics today Sepsis 09/03/2009 06/26/2022 Hypokalemia 06/30/2022 Assessment & Plan (06/28/2022 5:45 PM EDT): - replete Immunizations Immunization Administration Dates Next Due COVID-19 (Pre-06/25) Pfizer Vaccine, mRNA, PF 12/17/2020,11/24/2020 INFLUENZA, SPLIT VIRUS, TRIVALENT PF 06/15/2016 Influenza High-Dose Quadriva lent Preservative Free IM 06/28/2022,05/23/2021,2020 Influenza High-Dose Trivalen t Preservative Free IM 05/30/2019,06/14/2017 Influenza Quadrivalent w/ Preservative IM 2018,06/07/2018 Zoster recombinant 03/24/2022,12/20/2021 Family History Medical History Relation Comments Lung disease Neg Hx Social History Tobacco Use Types Packs/Day Years Used Date Smoking Tobacco: Never Smokeless Tobacco: Never Tobacco Cessation:Counseling Given: Not Answered Alcohol Use Standard Drinks/Week Comments Not Currently 0 (1 standard drink = 0.6 oz pure alcohol) 3 drinks a day, until quit 2020 Education Answer Date Recorded Are you interested [...] Orientation Straight 09/23/2018 11 :07 AM EST Last Filed Vital Signs Vital Sign Reading Time Taken Comments Blood Pressure 190/82 12/17/2024 10:45 AM EDT Pulse 78 12/17/2024 10:45 AM EDT Temperature 37 C (98.6 F) 02/17/2023 12:00 PM EDT Respiratory Rate 12 02/17/2023 12:00 PM EDT Oxygen Saturation 98% 12/17/2024 10:45 AM EDT Inhaled Oxygen Concentration - - Weight 69.4 kg (153 lb) 12/17/2024 10:45 AM EDT Height 165.1 cm (5' 5 ) 12/17/2024 10:45 AM EDT Body Mass Index 25.46 12/17/2024 10:45 AM EDT Plan of Treatment Upcoming Encounters Date Type Department Care Team (Late st Contact Info) Description 08/10/2025 9:45 AM EST Office Visit [facility] [address] [place] [address] [address] Floor, [address] [place] [address] Ezra Robledo, [address] [place] [address] [place] [id number] [email or web address] Health Maintenance Due Date Last Done Comments Adult Td,Tdap Booster 1950 DEPRESSION SCREENING 1964 PNEUMOCOCCAL VACCINES (50+ years) (1 of 2 - PCV) 1971 COLOGUARD 1997 FIT TEST 1997 FOBT 1997 SIGMOIDOSCOPY 1997 VIRTUAL COLONOSCOPY 1997 POTASSIUM LEVEL 02/18/2024 02/17/2023, 02/01, 02/15/2023, Additional history exists INFLUENZA VACCINE (#1) 2025 2, 05/23/2021, 2020, Additional history exists COVID-19 VACCINE ( - season) 2025 07/11/2021, 12/17/2020, 11/24/2020 BLOOD PRESSURE 06/18/2025 12/17/2024 LIPID PANEL 07/01/2025 07/01/2024, 11/01, 03/30/2020, Additional history exists RSV VACCINE (1 - 1-dose 75+ series) 2027 COLONOSCOPY 02/22/2028 02/16/2023 COLORECTAL CANCER SCREENING 02/22/2028 HEPATITIS C SCREENING Completed 04/11/2021 ZOSTER VACCINES Completed 03/24/2022, 12/20/2021 SMOKING STATUS SCREENING (Once After 26 Yrs) Completed 12/17/2024 HEPATITIS A VACCINES Aged Out No long er eligible based on patient's age to complete this topic HIB VACCINES Aged Out No longer eligi ble based on patient's age to complete this topic MENINGOCOCCAL VACCINES (ACWY) Aged Out No longer eligible based on patient's age to complete this topic MENINGOCOCCAL VACCINES (B) Aged Out N o longer eligible based on patient's age to complete this topic Medical Devices Not on file Procedures Procedure Name Priority Date/Time Associated Diagnosis Comments LIPID PANEL Routine 07/01/2024 7:05 AM EDT Coronary artery disease involving chipewwa coronary artery of chipewwa heart without angina pectoris COMPREHENSIVE METABOLIC PANEL (CMP) Routine 02/17/2023 11:24 AM EDT ENDOSCOPY, COLON 02/16/2023 1:28 PM EDT HEPATITIS C ANTIBODY, QUALITATIVE Routine 04/11/2021 8:45 AM EDT Need for hepatitis C screening test from Last 3 Months or Most Recently Relevant to Health Maintenance Results * (ABNORMAL) Lipid panel (07/01/2024 7:05 AM EDT) HDL 57 mg/dL [facility] Comment: Interpretation <40 mg/dL: Low HDL cholesterol (major risk factor for CHD) Greater than or equal to 60 mg/dL: High HDL cholesterol ( negative risk factor for CHD) HDL - cholesterol is affected by a number of factors, e.g. smoking, excerise, hormones, sex and age. CHOLESTEROL 151 0 - 240 mg/dL [facility] TRIGLYCERIDES 193(H) 30 - 160 mg/dL [facility] LDL 55 50 - 129 mg/dL [facility] Comment: LDL levels in terms of risk for coronary heart disease: <100 mg/dL: Optimal 100-129 mg/dL: Near or above optimal 130-159 mg/dL: Borderline high 160-189 mg/dL: High >190 mg/dL: Very High CARDIAC RISK RATIO 2.6(L) 3.4 - 5.0 [facility] Blood 07/01/2024 7:05 AM EDT 07/01/2024 7:10 AM EDT us Ezra Robledo DO LAB BLOOD BKR ORDERABLES Christina lfeming Result [facility] [address] [place] [address] * (ABNORMAL) Comprehensive metabolic panel (02/17/2023 11:24 AM EDT) SODIUM 144 133 - 146 mmol/L [facility] POTASSIUM 3.5 3.3 - 5.1 mmol/L [facility] CHLORIDE 106 96 - 108 mmol/L [facility] CO2 28 21 - 35 mmol/L [facility] BUN 15 6 - 19 mg/dL [facility] CREATININE 1.00 0.5 - 1.5 mg/dL [facility] GLUCOSE 91 70 - 99 mg/dL [facility] ALBUMIN 3.3(L) 3.9 - 4.8 g/dL [facility] TOTAL PROTEIN 5.7(L) 6.5 - 8.0 g/dL [facility] CALCIUM 8.7 8.4 - 10.3 mg/dL [facility] ALKALINE PHOSPHATASE 65 39 - 117 U/L [facility] TOTAL BILIRUBIN 0.5 0.0 - 1.2 mg/dL [facility] AST 19 0 - 37 U/L [facility] ALT 40 0 - 40 U/L [facility] GLOBULIN 2.4 1 - 4.8 g/dL [facility] EGFR 81 >59 mL/min/1.7 3m2 [facility] Comment:Estimated glomerular filtration rate calculated using the CKD-EPI refit equation. ANION GAP 14 10 - 20 mmol/L [facility] Blood 02/17/2023 11:2 4 AM EDT 02/17/2023 11:39 AM EDT us Desi Cunningham PA-C, MPH LAB BLOOD BKR ORDER KARAN Final Result [facility] [address] [place] [address] * ENDOSCOPY, COLON (02/16/2023 1:28 PM EDT) Narrative Transcriptions Jonnie Subramanian MD - 02/16/2023 1:28 PM EDT [facility] Patient Name: Anton Guido Attending MD:: JONNIE SUBRAMANIAN MD, Procedure Date: 02/16/2023 1:28 PM Date of : 1950 Age: 72 Admit Type: Inpatient Gender: Male Room: [place] [address] Referring MD: TRINY CARVER DO Exam Type: Colonoscopy Indications: High risk colon cancer surveillance: Personalhistory of colon cancer, Chronic diarrhea Medications: Monitored Anesthesia Care Procedure: Informed consent was obtained from the patientafter discussion of the indications, limitations, alternatives, benefits, and risks of the procedure. Risks specifically discussed include but are not limited to medication reactions, missed lesions, bleeding, perforation, or the need for emergent surgery. Throughout the procedure, the patient's blood pressure, pulse, end-tidal CO2, and oxygensaturations were monitored continuously. The Olympus adult variable colonoscope [id number] #5 was introduced through the anus and advanced to the cecum, identified by the appendiceal orifice. The colonoscopy was performed without difficulty. The patient tolerated the procedure well. The qualityof the bowel preparation was adequate to identifypolyps greater than 5 mm in size. Anatomical landmarkswere photographed. Complications: No immediate complications. Estimated blood loss:None. Findings: The perianal and digital rectal examinations were normal. There was evidence of a prior gei-ow-sbwbjicx-colonic anastomosis in the sigmoid colon. This waspatent. The rectum, recto-sigmoid colon, descending colon, splenic flexure, transverse colon, hepatic flexure, ascending colon, cecum, appendiceal orifice andrectum (on retroflexion) appeared normal. Biopsies weretaken with a cold forceps for histology. Impression: - Patent end-to-side colo-colonic anastomosis. - The rectum (on retroflexion), rectum, descending colon, splenic flexure, transverse colon, hepatic flexure, ascending colon, cecum, recto-sigmoidcolon and appendiceal orifice are normal. Biopsied. Recommendation: - Return patient to hospital [facility] for ongoingcare. - Advance diet as tolerated. - Continue present medications. - Await pathology results. - Repeat colonoscopy in 5 years for surveillance. - I will send you pathology results by letter. Ifyou do not get results in 3 weeks telephone luis. JONNIE SUBRAMANIAN MD 02/16/2023 1:48:28 PM This report has been signed electronically. Number of Addenda: 0 Note Initiated On: 02/16/2023 1:28 PM Procedure Code(s): --- Professional --- 31086, Colonoscopy, flexible; with biopsy, single or multiple --- Technical --- 35149, Colonoscopy, flexible; with biopsy, single or multiple Diagnosis Code(s): --- Professional --- Z85.038, Personal history of other malignantneoplasm of large intestine Z98.0, Intestinal bypass and anastomosis status K52.9, Noninfective gastroenteritis and colitis, unspecified --- Technical --- Z85.038, Personal history of other malignantneoplasm of large intestine Z98.0, Intestinal bypass and anastomosis status K52.9, Noninfective gastroenteritis and colitis, unspecified CPT copyright 2021 [employer]. All rights reserved. The codes documented in this report are preliminary and upon fire hydrant mechanic reviewmay be revised to meet current compliance requirements. Procedure Date: 02/16/2023 1:28:26 PM [address] [place] [address] us Triny A Bigda DO GI PROCEDURE ORDERABLES Final Re sult * Hepatitis C antibody, qualitative (04/11/2021 8:45 AM EDT) HCV NON-REACTIV E NON-REACTI VE [facility] Blood 04/11/2021 8:45 AM EDT 04/11/2021 8:48 AM EDT us Triny A Bigda DO LAB BLOOD BKR ORDERABLES Final R esult [facility] [address] [place] [address] from Last 3 Months or Most Recently Relevant to Health Maintenance Insurance [employer] [place] MEDICARE PPO BLUE REPLACEMENT Advance Directives For more information, please contact: [phone] (9AM - 5PM [facility], Sunday-Sunday) Documents on File Type Date Recorded Patient Document Control Assistant Expl anation Healthcare Proxy 02/19/2023 4:36 PM * Full Code (Latest Code Status on File) Date Activated Date Inactivated Comments 02/13/2023 1:53 AM Question Answer Comments Code Status Confirmed With: Patient Code Status Communicated To: Inpatient Attending * Full Code Date Activated Date Inactivated Comments 06/25/2022 3:21 PM 02/13/2023 1:53 AM Question Answer Comments Code Status Confirmed With: Patient * Full Code Date Activated Date Inactivated Comments 11/15/2021 8:51 PM 06/25/2022 3:21 PM Question Answer Comments Code Status Confirmed With: Patient Care Teams Product Manufacturing Professional Relationship Specialty Start Date End Date Triny Carver DO [email or web address] PCP - General Internal Medicine 01/03/19 Nigel Gunderson DO [address] [place] [address] [email or web address] Primary Oncologist Hematology and Oncology 05/05/21 Delmy Garcia NP [address] [place] [address] [email or web address] Nurse Practitioner Medical Oncology 05/05/21 Additional Source Comments The information contained in this document represents components of the legal health record. It is not the complete legal health record.[facility]
--- OUTSIDE RECORDS SUMMARY | 2025-07-27 15:08 | XMS_ITS | Encounter Summary ---
Author Organization [facility] Address [address] [place] [address] Phone Care Team Providers Care Telemarketing Agent Name Role Phone Reji Stout DO Primary Care Provider [phone] Nigel Gunderson DO Unavailable [phone] Delmy Garcia LIVESTOCK EXHIBITOR Unavailable [phone] Encounter Details Date Type Department Care Team (Late st Contact Info) Description 11/15/2021 Procedure Pass [facility] [address] [place] [address] Social History Tobacco Use Types Packs/Day Years [...] 3:19 PM EDT Sangeetha Conte RN * [place] Suicide Severity Rating Scale (Screener/Recent Self-Report) Question [...] Description 08/10/2025 9:45 AM EST Office Visit [facility] [address] [facility] [address] [facility], [address] [place] [address] Ezra Robledo DO [address] [place] [address] [email or web address] documented as of this encounter [...] documented as of this encounter Care Teams Telemarketing Agent Relationship Specialty Start Date End Date Reji Stout DO PCP - General Internal Medicine 01/03/19 Nigel Gunderson DO [address] [place] [address] [email or web address] Primary Oncologist Hematology and Oncology 05/05/21 Delmy Garcia NP [address] [place] [address] [email or web address] Nurse Practitioner Medical Oncology 05/05/21 documented as of this encounter Additional Source Comments The information contained in this document represents components of the legal health record. It is not the complete legal health record.[facility]
--- OUTSIDE RECORDS SUMMARY | 2025-07-27 15:08 | XMS_ITS | Encounter Summary ---
Author Organization [facility] Address [address] [place] [address] Phone Care Team Providers Care Director It Name Role Phone Reji Stout DO Primary Care Provider Nigel Gunderson DO Unavailable [phone] Delmy Garcia RESEARCH AND INSIGHTS EXECUTIVE Unavailable [phone] Encounter Details Date Type Department Care Team (Late st Contact Info) Description 06/25/2022 Procedure Pass [facility], Ct Scan - [address] [address] Social History Tobacco Use Types Packs/Day Years [...] Date of Assessment Author No Risk Indicated 06/26/2022 10:39 AM EDT Maricruz Crawford RN * [place]ukes Suicide Severity Rating Scale (Screener/Recent Self-Report) Question Answer Date of Assessment Author 1. Wish to be (Past 1 Month) No 06/26/2022 10:39 AM EDT Maricruz Hernandez RN 2. Non-Specific Active Suicidal Thoughts (Past 1 Month) No 06/26/2022 10:39 AM EDT Maricruz Hernandez RN 6. Suicidal Behavior (Lifetime) No 06/26/2022 10:39 AM EDT Maricruz Hernandez RN documented as of this encounter Plan of Treatment Upcoming Encounters Date Type Department Care Team (Late st Contact Info) Description 08/10/2025 9:45 AM EST Office Visit [facility] [address] [place] [address] 3rd Floor, [address] [place] [address] Ezra Robledo DO [address] [place] [address] [email or web address] documented as of this encounter Visit Diagnoses Not on filedocumented in this encounter Additional Health Concerns Infection Onset Date Last Indicated Resolved Time CoV-Risk Comment:2 neg covid 06/25/2022 06/27/2022 06/27/2022 10:27 AM EDT Rhino/Entero 06/26/2022 06/26/2022 07/03/2022 1:22 AM EDT CoV-Risk 08/20/2022 08/20/2022 08/31/2022 1:22 AM EST CoV-Risk Comment:Neg covid 02/12/2023 02/12/2023 02/13/2023 6:46 AM E DT documented as of this encounter Care Teams Director It Relationship Specialty Start Date End Date Reji Stout DO [email or web address] PCP - General Internal Medicine 01/03/19 Nigel Gunderson DO [address] [place] [address] [email or web address] Primary Oncologist Hematology and Oncology 05/05/21 Delmy Garcia NP [facility] [place] [address] [email or web address] Nurse Practitioner Medical Oncology 05/05/21 documented as of this encounter Additional Source Comments The information contained in this document represents components of the legal health record. It is not the complete legal health record.[facility]
--- OUTSIDE RECORDS SUMMARY | 2025-07-27 15:08 | XMS_ITS | Encounter Summary ---
Author Organization [facility] Address [address] [place] [address] Phone Care Team Providers Care Biological Scientist Name Role Phone Reji Stout DO Primary Care Provider [phone] Nigel Gunderson DO Unavailable [phone] Delmy Garcia FLUID JET CUTTER OPERATOR Unavailable [phone] Encounter Details Date Type Department Care Team (Late st Contact Info) Description 02/12/2023 Procedure Pass [facility], Ct Scan - [address] [address] Social History Tobacco Use Types Packs/Day Years [...] 12:20 AM EDT Rehana Wilkins RN * [place] Suicide Severity Rating Scale (Screener/Recent Self-Report) Question [...] Description 08/10/2025 9:45 AM EST Office Visit [facility] [address] [place] [address] 3rd Floor, [address] [place], [place] [id number] Ezra Robledo DO 22 [facility] [address] [place] [address] documented as of this encounter Visit Diagnoses Not on filedocumented in this encounter Additional Health Concerns Infection Onset Date Last Indicated Resolved Time CoV-Risk Comment:Neg covid 02/12/2023 02/12/2023 02/13/2023 6:46 AM E DT documented as of this encounter Care Teams Biological Scientist Relationship Specialty Start Date End Date Reji Stout DO [email or web address] PCP - General Internal Medicine 01/03/19 Nigel Gunderson DO [address] [place] [address] [email or web address] Primary Oncologist Hematology and Oncology 05/05/21 Delmy Garcia NP [address] [place] [address] [email or web address] Nurse Practitioner Medical Oncology 05/05/21 documented as of this encounter Additional Source Comments The information contained in this document represents components of the legal health record. It is not the complete legal health record.[facility]
--- OUTSIDE RECORDS SUMMARY | 2025-07-27 15:08 | XMS_ITS | Encounter Summary ---
Author Organization [facility] Address [address] [place] [address] Phone Care Team Providers Care Commercial Green Building Architect Name Role Phone Reji Stout DO Primary Care Provider [phone] Nigel Gunderson DO Unavailable Delmy Garcia MECHANICAL STRIPER Unavailable [phone] Encounter Details Date Type Department Care Team (Late st Contact Info) Description 02/12/2023 Procedure Pass [facility], Ct Scan - [address] [address] Social History Tobacco Use Types Packs/Day Years [...] 12:20 AM EDT Rehana Wilkins RN * [place] Suicide Severity Rating Scale (Screener/Recent Self-Report) Question [...] Description 08/10/2025 9:45 AM EST Office Visit [facility] [address] [place] [address] 3rd Floor, [address] [place], [place] [id number] Ezra Robledo DO 22 [facility] [address] [place] [address] documented as of this encounter Visit Diagnoses Not on filedocumented in this encounter Additional Health Concerns Infection Onset Date Last Indicated Resolved Time CoV-Risk Comment:Neg covid 02/12/2023 02/12/2023 02/13/2023 6:46 AM E DT documented as of this encounter Care Teams Commercial Green Building Architect Relationship Specialty Start Date End Date Reji Stout DO [email or web address] PCP - General Internal Medicine 01/03/19 Nigel Gunderson DO [address] [place] [address] [email or web address] Primary Oncologist Hematology and Oncology 05/05/21 Delmy Garcia NP [address] [place] [address] [email or web address] Nurse Practitioner Medical Oncology 05/05/21 documented as of this encounter Additional Source Comments The information contained in this document represents components of the legal health record. It is not the complete legal health record.[facility]
--- OUTSIDE RECORDS SUMMARY | 2025-07-27 15:08 | XMS_ITS | Encounter Summary ---
Author Organization [facility] Address [address] [place] [address] Phone Care Team Providers Care Fiscal Services Director Name Role Phone ElvincarolyneReji DO Primary Care Provider [phone] Nigel Gunderson DO Unavailable [phone] Delmy Garcia FOOD RUNNER Unavailable [phone] Encounter Details Date Type Department Care Team (Latest Contact Info) Description 01/31/2019 Transcribe Orders Virtual Department [address] [place] [address] Jessica Rubio PA-C [address] [place] [address] [email or web address] Pneumonia due to infectious organism, unspecified laterality, unspecified part of lung (Primary Dx) Social History Tobacco Use Types [...] Description 08/10/2025 9:45 AM EST Office Visit [facility] [address] [facility] 3rd Floor, [address] [place] [address] Ezra Robledo DO 22 [facility] [address] [place] [address] [email or web address] documented as of this encounter Results * XR CHEST PA AND LATERAL 2 VIEWS (02/05/2019 2:47 PM EDT) Anatomical Region Laterality Modality Chest Radiographic Rima ging 02/05/2019 3:09 PM EDT Impressions 02/05/2019 3:11 PM EDT No acute process. POS [id number] Narrative 02/05/2019 3:11 PM EDT PA and lateral chest, 2 views Compare 01/29/2019. The overall appearance of the chest is unchanged. No infiltrate or interstitial disease No signs of CHF or effusion. No nodules Normal heart and mediastinal contour. Procedure Note Edy Rangel MD - 02/05/2019 PA and lateral chest, 2 views Compare 01/29/2019. The overall appearance of the chest is unchanged. No infiltrate or interstitial disease No signs of CHF or effusion. No nodules Normal heart and mediastinal contour. IMPRESSION: No acute process. POS [id number] December Ramiro BROWNE IMG XR CHEST Final Result documented in this encounter Visit Diagnoses Diagnosis Pneumonia due to infectious organism, unspecified laterality, unspecified part of lung- Primary Pneumonia due to infectious organism, unspecified laterality, [...] documented as of this encounter Care Teams Fiscal Services Director Relationship Specialty Start Date End Date Reji Stout DO [email or web address] PCP - General Internal Medicine 01/03/19 Nigel Gunderson DO [address] [place] [address] [email or web address] Primary Oncologist Hematology and Oncology 05/05/21 Delmy Garcia NP [address] [place] [address] [email or web address] Nurse Practitioner Medical Oncology 05/05/21 documented as of this encounter Additional Source Comments The information contained in this document represents components of the legal health record. It is not the complete legal health record.[facility]
--- OUTSIDE RECORDS SUMMARY | 2025-07-27 15:08 | XMS_ITS | Encounter Summary ---
Author Organization [facility] Address [address] [place] [address] Phone Care Team Providers Care Credit Interviewer Name Role Phone Reji Stout DO Primary Care Provider [phone] Nigel Gunderson DO Unavailable [phone] Delmy Garcia CATERING TRUCK OPERATOR Unavailable [phone] Reason for Referral * MRI/CAT Scan - Closed Specialty Diagnoses / Procedures Referred By Contac t Referred To Contact Radiology Diagnoses Alcoholic hepatic failure without coma Procedures CT Abdomen Only (No Pelvis) CHG CT SCAN OF ABDOMEN COMBO CHG CT SCAN OF ABDOMEN CONTRAST CHG CT SCAN,ABDOMEN,W/O CONTRAST Alysa Castro PA Phone: tel: fax: Referral ID Status Reason Start Date Expiration Date Visits Re quested Visits Authorized [id number] Closed 11/25/2021 01/23/2022 1 1 Encounter Details Date Type Department Care Team (Latest Contact Info) Description 11/23/2021 Transcribe Orders Virtual Department [address] [place] [address] Alysa Castro PA 6 [facility] [place] [address] [place] [address] Alcoholic hepatic failure without coma (Primary Dx) Social History Tobacco Use Types [...] Description 08/10/2025 9:45 AM EST Office Visit [facility] [address] [place] [address] 3rd Floor, [address] [place] [address] Ezra Robledo DO [address] [place] [address] [place] [address] [email or web address] documented as of this encounter Results * CT ABDOMEN WITH AND WITHOUT CONTRAST (12/13/2021 11:42 AM EDT) Anatomical Region Laterality Modality Abdomen, Abdominal Vasculature C omputed Tomography 12/13/2021 1:44 PM EDT Impressions 12/13/2021 1:50 PM EDT No suspicious focal liver lesion. Narrative 12/13/2021 1:[address] ABDOMEN WITH AND WITHOUT CONTRAST TECHNIQUE: Multidetector-row CT of the abdomen was performed before and after administration of intravenous contrast using tailored dose modulation techniques. Images were reconstructed in the axial, coronal, and sagittal planes COMPARISON: None FINDINGS: Lower Chest: Normal. No consolidation or pleural effusions. Liver: Benign 3.4 cm segment 6 hemangioma (8:58). Biliary: Probable cholecystectomy. No biliary ductal dilatation. Spleen: Likely accessory splenic tissue in the left upper quadrant (7:24). No splenomegaly or focal lesions. Pancreas: Normal. No masses or ductal dilatation. Adrenal Glands: Normal. No nodules. Kidneys/Ureters: Partially calcified hypoattenuating, exophytic 1.4 cm right lower pole renal lesion, which does not demonstrate definite enhancement, likely benign, possibly involuted involution of a prior cyst. No solid masses, stones, or hydronephrosis. Bowel: Normal. No dilatation or wall thickening. Peritoneum/Retroperitoneum: Normal. No masses, pneumoperitoneum, or fluid. Lymph Nodes: Normal. No lymphadenopathy. Vessels: Vascular calcification. No abdominal aortic aneurysm. Bones/Soft Tissues: Unchanged lucent focus in the medial left iliac bone since 09/23/2018 (8:127), almost certainly benign given stability. No destructive osseous lesions. Procedure Note Marquise Siddiqui MD - 12/13/2021 CT ABDOMEN WITH AND WITHOUT CONTRAST TECHNIQUE: Multidetector-row CT of the abdomen was performed before andafter administration of intravenous contrast using tailored dosemodulation techniques. Images were reconstructed in the axial, coronal,and sagittal planes COMPARISON: None FINDINGS: Lower Chest: Normal. No consolidation or pleural effusions. Liver: Benign 3.4 cm segment 6 hemangioma (8:58). Biliary: Probable cholecystectomy. No biliary ductal dilatation. Spleen: Likely accessory splenic tissue in the left upper quadrant (7:24).No splenomegaly or focal lesions. Pancreas: Normal. No masses or ductal dilatation. Adrenal Glands: Normal. No nodules. Kidneys/Ureters: Partially calcified hypoattenuating, exophytic 1.4 cmright lower pole renal lesion, which does not demonstrate definiteenhancement, likely benign, possibly involuted involution of a prior cyst.No solid masses, stones, or hydronephrosis. Bowel: Normal. No dilatation or wall thickening. Peritoneum/Retroperitoneum: Normal. No masses, pneumoperitoneum, orfluid. Lymph Nodes: Normal. No lymphadenopathy. Vessels: Vascular calcification. No abdominal aortic aneurysm. Bones/Soft Tissues: Unchanged lucent focus in the medial left iliac bonesince 09/23/2018 (8:127), almost certainly benign given stability. Nodestructive osseous lesions. IMPRESSION: No suspicious focal liver lesion. 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 documented in this encounter Additional Health Concerns Infection Onset Date Last Indicated Resolved Time CoV-Exposed 11/16/2021 11/21/2021 11/27/2021 1:22 AM EDT CoV-Risk Comment:2 neg covid 06/25/2022 06/27/2022 06/27/2022 10:27 AM EDT Rhino/Entero 06/26/2022 06/26/2022 07/03/2022 1:22 AM EDT CoV-Risk 08/20/2022 08/20/2022 08/31/2022 1:22 AM EST CoV-Risk Comment:Neg covid 02/12/2023 02/12/2023 02/13/2023 6:46 AM E DT documented as of this encounter Care Teams Credit Interviewer Relationship Specialty Start Date End Date Reji Stout DO [email or web address] PCP - General Internal Medicine 01/03/19 Nigel Gunderson DO [address] [place] [address] [email or web address] Primary Oncologist Hematology and Oncology 05/05/21 Delmy Garcia NP [address] [place] [address] [email or web address] Nurse Practitioner Medical Oncology 05/05/21 documented as of this encounter Additional Source Comments The information contained in this document represents components of the legal health record. It is not the complete legal health record.[facility]
[2025-07-27 16:01] LABS: Alkaline Phosphatase 79 U/L (39-117)
== END 2025-07-27 11:27 | disposition home or self-care (01) ==
LOC: HO.MANLDS 11:26
PROVIDERS: Visit Provider Internal Medicine
DX: Z12.5 Encounter for screening for malignant neoplasm of prostate (principal); I10 Essential (primary) hypertension
CPT/HCPCS: 36415; 80053; 84153; 85025